=== PATIENT | male | born 1980 | race Caucasian/White ===

== ENCOUNTER 2017-06-10 08:09 | Emergency (ER) | payer MEDICARE, SELFPAY ==
[2017-06-10 07:17] VITALS: BP 152/93; PULSE 130; RESP 20; TEMP 36.6; O2SAT 98; BMI 23.7
--- NOTE | 2017-06-10 07:43 | CT_ITS ---
CT head/brain wo con HISTORY: ITS.REASON: SEIZURE ACTIVITY ORDERING PHYSICIAN: Jonatan Pendleton MD PATIENT AGE: 37 years COMPARISON: None TECHNIQUE: Helical images obtained without contrast. Axial sagittal and coronal reformatted images are reviewed. Brain and bone windows reviewed. FINDINGS: No midline shift, mass effect, intracranial hemorrhage, hydrocephalus, or extra-axial fluid collection is evident. The calvarium has an unremarkable appearance. No mastoid effusion. No sinus air-fluid levels.. IMPRESSION: Negative CT head without contrast. No acute finding.
--- NOTE | 2017-06-10 07:43 | PC.NURSE ---
Phlebotomy at bedside, collecting labs.
[2017-06-10 07:46] VITALS: BP 148/88; PULSE 100; RESP 20; O2SAT 97
[2017-06-10 08:36] LABS: Basophils % 0.4 % (0.1-2.0); Eosinophils # 0.1 K/mm3 (0.0-0.4); Eosinophils % 0.8 % (0.1-12.0); Hematocrit 46.4 % (42.0-52.0); Hemoglobin 15.2 g/dL (14.1-18.0); Lymphocytes # 1.6 K/mm3 (0.7-4.5); Lymphocytes % 18.7 K/mm3 (10-50); Mean Corpuscular HGB Conc 32.7 g/dL (31.8-35.4); Mean Corpuscular Hemoglobin 28.3 pg (27.0-31.2); Mean Corpuscular Volume 86.5 fl (80-94); Mean Platelet Volume 7.8 fl (7.4-10.4); Monocytes # 0.4 K/mm3 (0.1-1.0); Neutrophils # 6.3 K/mm3 (1.8-7.8); Neutrophils % 75.1 % (37.0-80.0); Platelet Count 237 K/mm3 (142-424); Red Blood Count 5.37 M/mm3 (4.60-6.20); Red Cell Distribution Width 12.9 % (11.5-17.5); White Blood Count 8.3 K/mm3 (4.8-10.8)
[2017-06-10 08:46] VITALS: BP 147/98; PULSE 98; RESP 20; TEMP 36.9; O2SAT 98
--- NOTE | 2017-06-10 08:50 | HMH.EDGENADL ---
ED Disposition Clinical Impression: Hypoglycemia, Cocaine abuse, Methamphetamine abuse Disposition: Home, Self-Care Condition on Discharge: Fair Instructions: Toxicology Screen, Hypoglycemia, DI for Cocaine Use Disorder, DI for Drug Abuse and Drug Addiction Additional Instructions: Please follow-up with [facility] regarding your drug problem and drug abuse. Urine drug screen was positive today for cocaine and amphetamine. Please make sure you eat 3 regular meals daily, drink plenty of fluids and monitor your sugars regularly. Please follow-up with your family physician if not better. Referrals: Lyla Mireles [Primary Care Provider] - Time of Disposition: 13:06 - Critical Care Critical Care Time: No Attestation: On 06/10/17, the high probability of a clinically significant, sudden or life threatening deterioration of the following system(s) required my full and direct attention, intervention and personal management. The time I documented below is in addition to time spent performing reported procedures but includes the following listed in this critical care notation. Medical Decision Making - Medical Records Medical records reviewed: Yes: I reviewed the patient's medical records. Vital Signs: 06/10/17 07:17 06/10/17 07:46 06/10/17 08:46 Temperature 97.8 F 98.4 F Temperature Source Oral Oral Pulse Rate Pulse Rate [Right Radial] 130 H 100 H 98 H Respiratory Rate 20 20 20 Blood Pressure Blood Pressure [Right Arm] 152/93 148/88 147/98 Blood Pressure Mean [Right Arm] 112 108 114 Blood Pressure Source Blood Pressure Source [Right Arm] Automatic Cuff Automatic Cuff Automatic Cuff Blood Pressure Position Blood Pressure Position [Right Arm] Supine Supine Sitting 02 Sat by Pulse Oximetry 98 97 98 Oxygen Delivery Method Room Air Room Air Room Air 06/10/17 13:16 Temperature 98.0 F Temperature Source Oral Pulse Rate 88 Pulse Rate [Right Radial] Respiratory Rate 20 Blood Pressure 114/59 Blood Pressure [Right Arm] Blood Pressure Mean [Right Arm] Blood Pressure Source Automatic Cuff Blood Pressure Source [Right Arm] Blood Pressure Position Supine Blood Pressure Position [Right Arm] 02 Sat by Pulse Oximetry Oxygen Delivery Method Room Air - Lab Data Lab results reviewed: Yes: I reviewed the patient's lab results. Lab Results 06/10/17 08:20: WBC 8.3, RBC 5.37, Hgb 15.2, Hct 46.4, MCV 86.5, MCH 28.3, MCHC 32.7, RDW 12.9, Plt Count 237, MPV 7.8, Neut % (Auto) 75.1, Lymph % (Auto) 18.7, [place] % (Auto) 5.0, Eos % (Auto) 0.8, Baso % (Auto) 0.4, Neut # (Auto) 6.3, Lymph # (Auto) 1.6, [place] # (Auto) 0.4, Eos # (Auto) 0.1, Baso # (Auto) 0.0 06/10/17 08:20: Sodium 144, Potassium 3.8, Chloride 106, Carbon Dioxide 25, Anion Gap 16.8 H, BUN 9, Creatinine 1.03, Estimated Creat Clear 112, Estimated GFR 81, Est GFR ( Amer) 98, Glucose 131 H, Calcium 9.1, Total Bilirubin 0.5, AST 50 H, ALT 83 H, Alkaline Phosphatase 123 H, Total Protein 8.4 H, Albumin 3.9, Globulin 4.5 H, Albumin/Globulin Ratio 0.9 L, Plasma/Serum Alcohol 0 06/10/17 10:10: Urine Color Yellow, Urine Appearance Sl cloudy, Urine pH 6.0, Ur Specific Colon >= 1.030, Urine Protein 2+, Urine Glucose (UA) 2+, Urine Ketones Trace, Urine Blood 1+, Urine Nitrate Negative, Urine Bilirubin Negative, Urine Urobilinogen 0.2, Ur Leukocyte Esterase Negative, Urine RBC Occasional, Urine WBC 5-10, Calcium Oxalate Crystal Trace, Urine Bacteria 2+, Urine Mucus 2+ 06/10/17 10:10: Urine Opiates Screen Negative, Ur Barbituates Screen Negative, Ur Phencyclidine Scrn Negative, Ur Amphetamines Screen Positive H, U Methamphetamines Scrn Negative, U Benzodiazepines Scrn Negative, Urine Cocaine Screen Positive H, U Marijuana (THC) Screen Negative 06/10/17 10:30: POC Glucose 266 Result diagrams: 06/10/17 08:20 06/10/17 08:20 Orders (Tests/Meds): ED MEDICATIONS Discontinued Medications Generic Name Dose Route Start Last Admin Trade Na
[2017-06-10 08:51] LABS: Alanine Aminotransferase 83 U/L (12-78); Albumin Level 3.9 gm/dL (3.4-5.0); Albumin/Globulin Ratio 0.9 (1.1-1.8); Alkaline Phosphatase 123 U/L (46-116); Anion Gap 16.8 mEq/L (5-15); Aspartate Amino Transferase 50 U/L (15-37); Bilirubin,Total 0.5 mg/dL (0.2-1.0); Blood Urea Nitrogen 9 mg/dL (7-18); Calcium 9.1 mg/dL (8.5-10.1); Carbon Dioxide 25 mmol/L (21.0-32.0); Chloride 106 mmol/L (98-107); Creatinine Clearance Estimated 112 mL/min (0-300); Creatinine,Serum 1.03 mg/dL (0.70-1.30); Estimated Glomerular Filt Rate 81 ml/min (>60); GFR (African American) 98 ML/MIN (>60); Globulin 4.5 gm/dl (1.3-3.2); Glucose 131 mg/dL (74-106); Potassium 3.8 mmoL/L (3.5-5.1); Sodium 144 mmol/L (136-145); Total Protein,Serum 8.4 gm/dL (6.4-8.2)
--- NOTE | 2017-06-10 08:57 | ED_ITS ---
ED Disposition Clinical Impression: Hypoglycemia, Cocaine abuse, Methamphetamine abuse Disposition: Home, Self-Care Condition on Discharge: Fair Instructions: Toxicology Screen, Hypoglycemia, DI for Cocaine Use Disorder, DI for Drug Abuse and Drug Addiction Additional Instructions: Please follow-up with [facility] regarding your drug problem and drug abuse. Urine drug screen was positive today for cocaine and amphetamine. Please make sure you eat 3 regular meals daily, drink plenty of fluids and monitor your sugars regularly. Please follow-up with your family physician if not better. Referrals: Lyla Mireles [Primary Care Provider] - Time of Disposition: 13:06 - Critical Care Critical Care Time: No Attestation: On 06/10/17, the high probability of a clinically significant, sudden or life threatening deterioration of the following system(s) required my full and direct attention, intervention and personal management. The time I documented below is in addition to time spent performing reported procedures but includes the following listed in this critical care notation. Medical Decision Making - Medical Records Medical records reviewed: Yes: I reviewed the patient's medical records. Vital Signs: 06/10/17 07:17 06/10/17 07:46 06/10/17 08:46 Temperature 97.8 F 98.4 F Temperature Source Oral Oral Pulse Rate Pulse Rate [Right Radial] 130 H 100 H 98 H Respiratory Rate 20 20 20 Blood Pressure Blood Pressure [Right Arm] 152/93 148/88 147/98 Blood Pressure Mean [Right Arm] 112 108 114 Blood Pressure Source Blood Pressure Source [Right Arm] Automatic Cuff Automatic Cuff Automatic Cuff Blood Pressure Position Blood Pressure Position [Right Arm] Supine Supine Sitting 02 Sat by Pulse Oximetry 98 97 98 Oxygen Delivery Method Room Air Room Air Room Air 06/10/17 13:16 Temperature 98.0 F Temperature Source Oral Pulse Rate 88 Pulse Rate [Right Radial] Respiratory Rate 20 Blood Pressure 114/59 Blood Pressure [Right Arm] Blood Pressure Mean [Right Arm] Blood Pressure Source Automatic Cuff Blood Pressure Source [Right Arm] Blood Pressure Position Supine Blood Pressure Position [Right Arm] 02 Sat by Pulse Oximetry Oxygen Delivery Method Room Air - Lab Data Lab results reviewed: Yes: I reviewed the patient's lab results. Lab Results 06/10/17 08:20: WBC 8.3, RBC 5.37, Hgb 15.2, Hct 46.4, MCV 86.5, MCH 28.3, MCHC 32.7, RDW 12.9, Plt Count 237, MPV 7.8, Neut % (Auto) 75.1, Lymph % (Auto) 18.7 , [place] % (Auto) 5.0, Eos % (Auto) 0.8, Baso % (Auto) 0.4, Neut # (Auto) 6.3, Lymph # (Auto) 1.6, [place] # (Auto) 0.4, Eos # (Auto) 0.1, Baso # (Auto) 0.0 06/10/17 08:20: Sodium 144, Potassium 3.8, Chloride 106, Carbon Dioxide 25, Anion Gap 16.8 H, BUN 9, Creatinine 1.03, Estimated Creat Clear 112, Estimated GFR 81, Est GFR ( Amer) 98, Glucose 131 H, Calcium 9.1, Total Bilirubin 0.5, AST 50 H, ALT 83 H, Alkaline Phosphatase 123 H, Total Protein 8.4 H, Albumin 3.9, Globulin 4.5 H, Albumin/Globulin Ratio 0.9 L, Plasma/Serum Alcohol 0 06/10/17 10:10: Urine Color Yellow, Urine Appearance Sl cloudy, Urine pH 6.0, Ur Specific [place] >= 1.030, Urine Protein 2+, Urine Glucose (UA) 2+, Urine Ketones Trace, Urine Blood 1+, Urine Nitrate Negative, Urine Bilirubin Negative , Urine Urobilinogen 0.2, Ur Leukocyte Esterase Negative, Urine
[2017-06-10 09:00] LABS: Ethyl Alcohol 0 mg/dL (0-99)
--- NOTE | 2017-06-10 09:39 | PC.NURSE ---
RN walked into room and overheard patient talking to , stating, I'm not going to do that for you. Patient stating he can not urinate. Patient has fluids hanging wide open and is drinking soda as well.
[2017-06-10 10:14] LABS: Microscopic, Urine URINE MICROSCOPIC (MICROSCOPIC)
[2017-06-10 10:17] LABS: Appearance,Urine SL CLOUDY (Clear); Bilirubin,Urine Negative (Negative); Blood, Urine 1+ (Negative); Color,Urine YELLOW (Yellow); Glucose,Urine (UA) 2+ (Negative); Ketones,Urine TRACE (Negative); Leukocyte Esterase,Urine Negative (Negative); Nitrate,Urine Negative (Negative); Protein,Urine 2+ (Negative); Specific Gravity, Urine >= 1.030 (1.005-1.030); Urobilinogen,Urine 0.2 EU/dl (0.2)
[2017-06-10 10:25] LABS: Amphetamine/Metha Screen,Urine Positive ng/mL (<1000); Barbiturates Screen,Urine Negative ng/mL (<200); Benzodiazepines Screen,Urine Negative ng/mL (200); Cannabinoid Screen,Urine Negative ng/mL (<50); Cocaine Screen,Urine Positive ng/g (<300); Methadone Screen,Urine Negative ng/mL (<300); Opiate Screen,Urine Negative ng/mL (<300); Phencyclidine Screen,Urine Negative ng/mL (<25)
[2017-06-10 10:38] LABS: POC Glucose,Bedside 266 mg/dL
[2017-06-10 10:44] LABS: Bacteria,Urine 2+ /lpf; Mucus,Urine 2+ /lpf; RBC,Urine Occasional #/hpf (0-3)
[2017-06-10 10:45] LABS: Calcium Oxalate Crystals,Urine Trace /lpf
--- NOTE | 2017-06-10 11:31 | PC.NURSE ---
Blood glucose 266.
[2017-06-10 13:16] VITALS: BP 114/59; PULSE 88; RESP 20; TEMP 36.7; O2SAT 99
[2017-07-09 09:53] LABS: POC Glucose,Bedside 106 mg/dL (70-110)
== END 2017-06-10 13:17 | disposition home or self-care (01) ==
PROVIDERS: Emergency Medicine; Emergency Provider Emergency Medicine; Family Provider Family Medicine; PCP Family Medicine
DX: E10.649 Type 1 diabetes mellitus with hypoglycemia without coma (principal); G40.89 Other seizures; F14.10 Cocaine abuse, uncomplicated; F15.90 Other stimulant use, unspecified, uncomplicated
CPT/HCPCS: 36415; 70450; 80053; 80305; 81001; 82962; 85025; 87086; 96365; 99283

== ENCOUNTER 2018-09-21 17:47 | Inpatient (IN) ==
[2018-09-21 18:41] LABS: Basophils % 0.4 % (0.1-2.0); Eosinophils # 0.1 K/mm3 (0.0-0.4); Eosinophils % 1.3 % (0.1-12.0); Hematocrit 41.9 % (42.0-52.0); Hemoglobin 13.3 g/dL (14.1-18.0); Lymphocytes # 2.5 K/mm3 (0.7-4.5); Mean Corpuscular HGB Conc 31.8 g/dL (31.8-35.4); Mean Corpuscular Hemoglobin 29.5 pg (27.0-31.2); Mean Platelet Volume 7.5 fl (7.4-10.4); Monocytes # 0.4 K/mm3 (0.1-1.0); Monocytes % 3.8 % (1.7-9.3); Neutrophils # 6.3 K/mm3 (1.8-7.8); Neutrophils % 67.5 % (37.0-80.0); Platelet Count 270 K/mm3 (142-424); Red Blood Count 4.51 M/mm3 (4.60-6.20); White Blood Count 9.3 K/mm3 (4.8-10.8)
[2018-09-21 19:01] LABS: Albumin Level 2.6 gm/dL (3.4-5.0); Albumin/Globulin Ratio 0.5 (1.1-1.8); Anion Gap 10.1 mEq/L (5-15); Bilirubin,Total 0.4 mg/dL (0.2-1.0); Calcium 8.1 mg/dL (8.5-10.1); Globulin 5.2 gm/dl (1.3-3.2); Potassium 4.1 mmoL/L (3.5-5.1); Total Protein,Serum 7.8 gm/dL (6.4-8.2)
[2018-09-21 19:17] LABS: VBG Base Excess 1.5 mmol/L (-2.4-2.3); VBG HCO3 27.5 mmol/L (23-30); VBG Oxygen Saturation 87.6 % (50-70); VBG PCO2 53.7 mmol/L (35-51); VBG PH 7.33 mmol/L (7.31-7.41); VBG PO2 53.4 mmol/L (28-40); VBG Total CO2 29.1 mmol/L (23-27)
--- NOTE | 2018-09-21 19:39 | Emergency Department Note ---
ED Disposition Clinical Impression: Cellulitis, IDDM (insulin dependent diabetes mellitus), Non compliance with medical treatment, S/P AKA (above knee amputation) Disposition: Admitted as Observation Condition on Discharge: Fair Instructions: Cellulitis Referrals: Akila Slade [Primary Care Provider] - Time of Disposition: 20:09 - Critical Care Critical Care Time: No Attestation: On 09/21/18, the high probability of a clinically significant, sudden or life threatening deterioration of the following system(s) required my full and direct attention, intervention and personal management. The time I documented below is in addition to time spent performing reported procedures but includes the following listed in this critical care notation. Medical Decision Making - Medical Records Medical records reviewed: Yes: I reviewed the patient's medical records. - Dyllan Inquiry Pt receiving controlled substance: No Dyllan was queried for this patient: No Vital Signs: 09/21/18 17:49 09/21/18 17:58 09/21/18 19:19 Temperature 98 F 98 F Temperature Source Oral Oral Pulse Rate [Left Radial] 87 87 72 Respiratory Rate 16 14 Blood Pressure [Right Arm] 141/70 H 140/70 145/72 H Blood Pressure Mean [Right Arm] 93 93 96 Blood Pressure Source [Right Arm] Automatic Cuff Automatic Cuff Blood Pressure Position [Right Arm] Sitting Sitting 02 Sat by Pulse Oximetry 98 98 98 Oxygen Delivery Method Room Air Room Air - Lab Data Lab results reviewed: Yes: I reviewed the patient's lab results. Lab Results 09/21/18 18:20: WBC 9.3, RBC 4.51 L, Hgb 13.3 L, Hct 41.9 L, MCV 93.0, MCH 29.5, MCHC 31.8, RDW 13.0, Plt Count 270, MPV 7.5, Neut % (Auto) 67.5, Lymph % (Auto) 27.0, [place] % (Auto) 3.8, Eos % (Auto) 1.3, Baso % (Auto) 0.4, Neut # (Auto) 6.3, Lymph # (Auto) 2.5, [place] # (Auto) 0.4, Eos # (Auto) 0.1, Baso # (Auto) 0.0 09/21/18 18:20: Sodium 127 L, Potassium 4.1, Chloride 92 L, Carbon Dioxide 29, Anion Gap 10.1, BUN 14, Creatinine 0.92, Estimated Creat Clear 124, Estimated GFR 92, Est GFR ( Amer) 111, Glucose 646 H*, Calcium 8.1 L, Total Bilirubin 0.4, AST 98 H, ALT 168 H, Alkaline Phosphatase 133 H, Total Protein 7.8, Albumin 2.6 L, Globulin 5.2 H, Albumin/Globulin Ratio 0.5 L 09/21/18 18:20: Lactate 1.9 09/21/18 18:20: Acetone Level None detected 09/21/18 19:13: VBG pH 7.33, VBG pCO2 53.7 H, VBG pO2 53.4 H, VBG HCO3 27.5, VBG Total CO2 29.1 H, VBG O2 Saturation 87.6 H, VBG Base Excess 1.5 Result diagrams: 09/21/18 18:20 09/21/18 18:20 Orders (Tests/Meds): ED MEDICATIONS Generic Name Dose Route Start Last Admin Trade Name Freq PRN Reason Stop Dose Admin Sodium Chloride 1,000 mls @ 999 mls/hr 09/21/18 19:15 09/21/18 19:22 Sod Chlor 0.9% 1000ml Bag IV 09/21/18 21:15 999 mls/hr .Q1H1M KEVIN Administration Piperacillin Sod/Tazobactam 50 mls @ 100 mls/hr 09/21/18 20:15 Sod 3.375 gm/ Sodium Chloride IV 10/05/18 20:14 Q6H KEVIN Protocol Vancomycin HCl 1,500 mg/ 250 mls @ 125 mls/hr 09/21/18 20:04 Sodium Chloride IV 09/21/18 22:03 ONCE ONE Miscellaneous 1 each 09/21/18 20:15 09/21/18 20:05 Vancomycin Consult Request * 10/21/18 20:14 1 each CONSULT PHARMACY KEVIN Administration Discontinued Medications Generic Name Dose Route Start Last Admin Trade Name Freq PRN Reason Stop Dose Admin Insulin Human Lispro 12 unit 09/21/18 19:43 09/21/18 20:06 Humalog 100 Units/Ml 3ml Vial (Ssi) SQ 09/21/18 19:44 12 unit ONCE ONE Administration Ketorolac Tromethamine 30 mg 09/21/18 19:52 09/21/18 20:05 Toradol 30mg/Ml Vial IV 09/21/18 19:53 30 mg ONCE ONE Administration Oxycodone/Acetaminophen 1 each 09/21/18 19:52 09/21/18 20:05 Percocet 7.5/325mg Tablet PO 09/21/18 19:53 1 each ONCE ONE Administration ORDERS Category Date Time Status CT hand LT w con Stat Cat Scan 09/21/18 20:01 Ordered Blood Culture Stat Micro 09/21/18 18:20 Received VBG [Venous Blood Gas] Stat RT 09/21/18 19:37 Ordered - Physician Consults Physician Consulted: irvin Reason -: Pt condition Comment/Response: will see Brittany Additional Consult: robe Time: 20:08 Reason -: Admission, Pt condition, Orthopedic Eval/Care Comment/Response: iv antibiotics General Adult HPI - General Chief complaint: PAIN Stated complaint: AO [address] to Wrist, Hand swollen Time Seen by Provider: 09/21/18 18:00 Mode of Arrival: Ambulatory Source of Information: Patient Limitations: No Limitations Description of Symptoms (Recalled from ER Triage Doc. by RN): see note - Related Data Home Medications Medication Instructions Recorded Confirmed Insulin Regular, Human [Novolin R] 28 unit SQ BID 11/10/17 09/21/18 Buprenorphine HCl/Naloxone HCl 1 each SL BID 02/07/18 09/21/18 [Suboxone 8 mg-2 mg Sl Film] Allergies Allergy/AdvReac Type Severity Reaction Status Date / Time No Known Allergies Allergy Verified 01/05/18 05:53 [facility] History - Hepatitis A Screen Drug use history?: Yes High risk sexual behaviors?: No History of sexually transmitted infection?: No Currently employed?: No Childcare worker?: No Do you have indoor plumbing?: Yes Do you have electricity?: Yes Attestation statement:: This patient has been screened for Hepatitis A risk factors. I have reviewed the patient's past medical history: Yes Medical History: Reports:: Diabetes Mellitus Type 1 Denies:: Cancer, Diabetes Mellitus Type 2, MRSA Amputation: Yes - Social History Smoking Status: Current every day smoker Tobacco Type: cigarettes # Packs/Day (cigarettes): 0 Alcohol Intake: never Substance Use Type: IV drugs, methamphetamine Last Used Substance: days (ago) Occupational Status: other - Psychiatric History Expresses thoughts of harming self/others: None Suicide Plan Description: No Plan ROS Obtained: Yes All systems reviewed & no additional complaints - Constitutional Constitutional: Denies fever(s) - ENT Ears, Nose, Mouth, and Throat: Reports system reviewed and no additional complaints, except as docu - Cardiovascular Cardiovascular: Denies chest pain, Denies chest pain at rest, Denies diaphoresis, Denies dyspnea - Respiratory Respiratory: Yes system reviewed and no additional complaints, except as docu, No chest congestion, No cough - Genitourinary Male Genitourinary: Reports system reviewed and no additional complaints, except as docu, Denies difficulty urinating - Musculoskeletal Musculoskeletal: Reports joint stiffness, Reports muscle weakness, Reports muscle aches - Integumentary/Breasts Skin/Breast: Reports skin swelling, Reports wounds - Neurologic Neurologic: Denies dizziness - Hematologic/Lymphatic Henatologic/Lymphatic: Denies easy bleeding, Denies easy bruising Physical Exam - General General appearance: alert, in no apparent distress - Head Head exam: atraumatic, normocephalic, normal inspection - Eye Eye exam: Present: normal appearance, PERRL, EOMI - ENT ENT exam: Present: normal exam, normal oropharynx, mucous membranes moist, TM's normal bilaterally, normal external ear exam - Neck Neck exam: Present: normal inspection, full ROM, trachea midline. Absent: meningismus, lymphadenopathy - Respiratory Respiratory exam: Present: normal lung sounds bilaterally. Absent: respiratory distress - Cardiovascular Cardiovascular exam: Present: regular rate, normal rhythm. Absent: JVD - Extremities Exam Extremities exam: Present: tenderness, joint swelling. Absent: normal inspection, full ROM - Neurological Exam Neurological exam: Present: alert, oriented X3, CN II-XII intact - Psychiatric Psychiatric exam: Present: normal affect, normal mood - Skin Skin exam: Present: warm, dry, erythema. Absent: intact, normal color
--- NOTE | 2018-09-21 22:14 | Consult Report ---
*Admission Date: 09/21/18 *Chief complaint: L hand pain/swelling *History of present illness: 38yo M with chief complaint of pain, swelling and redness in the left hand x2 days. He sustained a cut over the volar aspect of the L wrist from a piece of sheet metal at his home. Since then he has had pain and swelling from that site, spreading distally in the hand. No erythema over the wrist, but there is extensi ve erythema over the dorsum of the hand, white pustules scattered across the same region, and extreme pain with any motion of the hand. Denies drainage from the hand, no fevers at home, but his glucose was 646 on presentation to the ER. He was given 12 units humalog on arrival and it has decreased to 293. 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 He has a history of IVDU but has not injected anything in over a month; at that time he injected into the neck. He reports pain over the middle finger MCP in the past, but doesn't recall any h/o fractures. Denies punching anyone/thing recently. Denies any illegal substances in his system at the moment. Review of Systems - Review of Systems Review of systems:: pertinent systems reviewed and negative unless documented below - Constitutional Denies chills, Denies excessive sweating, Denies fever(s), Denies headache(s), Denies weakness - Eyes Denies blurry vision - *Cardiovascular Denies chest pain, Denies shortness of breath - *Respiratory Denies cough, Denies shortness of breath - *Gastrointestinal Denies abdominal pain - *Genitourinary Denies difficulty urinating, Denies painful urination - *Musculoskeletal Reports joint pain, Reports joint swelling Comments: L hand - *Neurologic Denies dizziness, Denies numbness, Denies dizziness, Denies weakness [facility] History I have reviewed the patient's past medical history: Yes Medical History: Reports:: Diabetes Mellitus Type 1 Denies:: Cancer, Diabetes Mellitus Type 2, MRSA *Have you ever received a pneumonia vaccine?: No *Have you received a flu vaccine this season?: No Amputation: Yes Comment: I&D of multiple septic joints at ; h/o fungal infection in R knee - *Social History Smoking Status: Current every day smoker Tobacco Type: cigarettes # Packs/Day (cigarettes): 0 Alcohol Intake: never Substance Use Type: IV drugs, methamphetamine Last Used Substance: days (ago) *Occupational Status:: other *Travel in the last 8 weeks: None - Psychiatric History Expresses thoughts of harming self/others: None Suicide Plan Description: No Plan Family Hx:: No significant family history Meds Home Medications Medication Instructions Recorded Confirmed Type Insulin Regular, Human [Novolin R] 28 unit SQ BID 11/10/17 09/21/18 History Buprenorphine HCl/Naloxone HCl 1 each SL BID 02/07/18 09/21/18 History [Suboxone 8 mg-2 mg Sl Film] Allergies Allergy/AdvReac Type Severity Reaction Status Date / Time No Known Allergies Allergy Verified 01/05/18 05:53 Exam Vital signs and Labs for Last 24 Hours: Temp Pulse Resp BP Pulse Ox 98 F 87 15 146/71 H 98 09/21/18 17:58 09/21/18 21:30 09/21/18 21:30 09/21/18 21:30 09/21/18 21:30 Laboratory Results - last 24 hr 09/21/18 18:20: WBC 9.3, RBC 4.51 L, Hgb 13.3 L, Hct 41.9 L, MCV 93.0, MCH 29.5, MCHC 31.8, RDW 13.0, Plt Count 270, MPV 7.5, Neut % (Auto) 67.5, Lymph % (Auto) 27.0, Gaston % (Auto) 3.8, Eos % (Auto) 1.3, Baso % (Auto) 0.4, Neut # (Auto) 6.3, Lymph # (Auto) 2.5, Gaston # (Auto) 0.4, Eos # (Auto) 0.1, Baso # (Auto) 0.0 09/21/18 18:20: Sodium 127 L, Potassium 4.1, Chloride 92 L, Carbon Dioxide 29, Anion Gap 10.1, BUN 14, Creatinine 0.92, Estimated Creat Clear 124, Estimated GFR 92, Est GFR ( Amer) 111, Glucose 646 H*, Calcium 8.1 L, Total Bilirubin 0.4, AST 98 H, ALT 168 H, Alkaline Phosphatase 133 H, Total Protein 7.8, Albumin 2.6 L, Globulin 5.2 H, Albumin/Globulin Ratio 0.5 L 09/21/18 18:20: Lactate 1.9 09/21/18 18:20: Acetone Level None detected 09/21/18 19:13: VBG pH 7.33, VBG pCO2 53.7 H, VBG pO2 53.4 H, VBG HCO3 27.5, VBG Total CO2 29.1 H, VBG O2 Saturation 87.6 H, VBG Base Excess 1.5 09/21/18 21:53: POC Glucose 293 H I & O for Last 24 hours: Intake & Output 09/19/18 09/20/18 09/21/18 09/22/18 11:59 11:59 11:59 11:59 Weight 180 lb - Constitutional no acute distress, average body habitus, cooperative - *Routine HEENT Exam Head: Present: normocephalic Eye: Present: EOMI ENT: Present: mucous membranes moist - *Routine Neck Exam Present: supple. Absent: tenderness - *Routine Respiratory Exam Present: CTA bilaterally. Absent: respiratory distress, wheezes - *Routine Cardiovascular Exam Present: RRR - *Routine Abdominal Exam Present: soft. Absent: tenderness, distended - *Routine Extremities Exam Comments: L hand diffusely swollen throughout palm and dorsum of hand erythema extends across the entire dorsum of the hand, does not extend proximal to wrist, no palmar erythema tattoo across entire dorsum of hand (~1 month old per patient) scattered lesions across dorsum of hand, each around 2mm and raised with white center/red base, not fluctuant, nothing expressed severe pain with passive extension of all digits, unable to make a fist; pain with flexion of any digit hand soft, extremely tender, cannot palpate discrete abscess but appearance c/w deep space infection laceration over volar wrist, around 3cm proximal to wrist crease, 3-4cm long and appears superficial, though soft tissue very tender diminished motion in left wrist, pain with passive flexion/extension SILT in m/r/u distributions L hand AIN/PIN/ulnar nerves motor intact to L hand palpable radial pulse at the L wrist - *Routine Skin Exam Present: intact, erythema, warm, lesions - *Routine Neurological Exam Present: alert, oriented X3, moving all extremities, normal tone. Absent: sensory deficit, motor deficit, altered mental status - Routine Psychiatric Exam Present: normal affect Results - Labs Result Diagrams: 09/21/18 18:20 09/21/18 18:20 Labs: Abnormal lab results 09/21/18 09/21/18 09/21/18 Range/Units 18:20 18:20 19:13 RBC 4.51 L (4.60-6.20) M/mm3 Hgb 13.3 L (14.1-18.0) g/dL Hct 41.9 L (42.0-52.0) % VBG pCO2 53.7 H (35-51) mmol/L VBG pO2 53.4 H (28-40) mmol/L VBG Total CO2 29.1 H (23-27) mmol/L VBG O2 Saturation 87.6 H (50-70) % Sodium 127 L (136-145) mmol/L Chloride 92 L (98-107) mmol/L Glucose 646 H* (74-106) mg/dL POC Glucose (70-110) Calcium 8.1 L (8.5-10.1) mg/dL AST 98 H (15-37) U/L ALT 168 H (12-78) U/L Alkaline Phosphatase 133 H (46-116) U/L Albumin 2.6 L (3.4-5.0) gm/dL Globulin 5.2 H (1.3-3.2) gm/dl Albumin/Globulin Ratio 0.5 L (1.1-1.8) 09/21/18 Range/Units 21:53 RBC (4.60-6.20) M/mm3 Hgb (14.1-18.0) g/dL Hct (42.0-52.0) % VBG pCO2 (35-51) mmol/L VBG pO2 (28-40) mmol/L VBG Total CO2 (23-27) mmol/L VBG O2 Saturation (50-70) % Sodium (136-145) mmol/L Chloride (98-107) mmol/L Glucose (74-106) mg/dL POC Glucose 293 H (70-110) Calcium (8.5-10.1) mg/dL AST (15-37) U/L ALT (12-78) U/L Alkaline Phosphatase (46-116) U/L Albumin (3.4-5.0) gm/dL Globulin (1.3-3.2) gm/dl Albumin/Globulin Ratio (1.1-1.8) H & H 09/21/18 Range/Units 18:20 Hgb 13.3 L (14.1-18.0) g/dL Hct 41.9 L (42.0-52.0) % All other labs normal. - Diagnostic results Wrist/Hand x-ray: image reviewed (small fracture from metacarpal head of middle finger, margins rounded, appears chronic ) Wrist/Hand CT: image reviewed Assessment and Plan (1) Abscess of hand Current visit: Yes Status: Acute Category: Medical Code(s): L02.519 - Cuta neous abscess of unspecified hand (2) Cellulitis Current visit: Yes Status: Acute Category: Medical Code(s): L03.90 - Cellulitis, unspecified (3) IDDM (insulin dependent diabetes mellitus) Current visit: Yes Status: Acute Category: Medical Code(s): E11.9 - Type 2 diabetes mellitus without complications; Z79.4 - [employer] (current) use of insulin (4) Hyperglycemia Current visit: No Status: Acute Category: Medical Code(s): R73.9 - Hyperglycemia, unspecified - Assessment and plan all Dx Assessment and Plan for all problems:: 38yo M with L hand cellulitis, suspect deep space infection clinically -- WBC 9.3, blood cultures/CRP/ESR pending -- no acetone, lactate 1.9; glucose 646 --> 293 -- Na 127 -- CT hand = awaiting read from telerads -- clinical suspicion for deep space infection, will take to OR for I&D tonight and start vanc/zosyn after cultures taken -- consent obtained from patient
--- NOTE | 2018-09-22 00:10 | Progress Note ---
[facility] Anesthesia Checklist - Patient Identification Patient Identification: Arm Band - Structural Data Admitted From: Emergency Dept Planned Operative Procedure/s: I&D right hand Consent for Planned Operative Procedure(s) Verified: Yes Verified Documents: Surgical Consent, History and Physical - NPO Status Verified Time NPO: 00:00 - Additional verifications Anesthesia Reactions: No - Airway Assessment C-Spine Mobility Assessed: Yes (mp2) TMJ Mobility Assessed: Yes Dentition: Poor Dentition - Neurological Assessment Level of Consciousness: Awake, Alert - Anesthesia Plan Anesthesia Risk discussed: Yes Anesthesia Plan: Verified ASA Class: III (e) Anesthesia Type: General [facility] History I have reviewed the patient's past medical history: Yes Medical History: Reports:: Diabetes Mellitus Type 1, Hepatitis (C) Denies:: Cancer, Diabetes Mellitus Type 2, MRSA, Seizures *Have you ever received a pneumonia vaccine?: No *Have you received a flu vaccine this season?: No Other Medical History: Denies: Blood Transfusion Reaction Other Surgeries: Yes: Other (left AKA, bilateral shoulder sx, right knee sx) Amputation: Yes - *Social History Smoking Status: Current every day smoker Tobacco Type: cigarettes # Packs/Day (cigarettes): 0 Alcohol Intake: never Substance Use Type: IV drugs, methamphetamine Last Used Substance: days (ago) *Occupational Status:: other *Travel in the last 8 weeks: None - Psychiatric History Expresses thoughts of harming self/others: None Suicide Plan Description: No Plan Family Hx:: No significant family history
--- NOTE | 2018-09-22 00:11 | Progress Note ---
[facility] Anesthesia Record Part I Intake, IV Amount: 1,000 Estimated blood loss (mL): 10 Urine output (mL): 0 Blood Pressure: 124/73 SaO2: 96 Pulse Rate: 83 Respiratory Rate: 16 Temperature: 98 F Patient is:: Drowsy, Stable Stable to PACU at:: 23:50
--- NOTE | 2018-09-22 00:11 | Progress Note ---
[facility] Anesthesia Record Part II Discharge Time: 00:20 Destination: 2nd floor PACU nurse assessment reviewed?: Yes Patient Condition:: Good Anesthesia Complications:: None Swallowing reflex intact?: Yes Cyanosis?: No
--- NOTE | 2018-09-22 00:21 | Operative Note ---
Date of procedure: 09/22/18 Pre-op Diagnosis:: L hand cellulitis + possible deep space infection Post-op Diagnosis:: L hand cellulitis + small superficial abscesses x4 Procedure performed:: I&D L hand Surgeon:: Marielena Florentino MD Iron Setter(s):: Billie Adams CST PAEDIATRIC SURGEON:: Jose Tillman Anesthesia: GETA Estimated blood loss (mL): 5 Clinical Note:: 38yo M with chief complaint of pain, swelling and redness in the left hand x2 days. He sustained a cut over the volar aspect of the L wrist from a piece of sheet metal at his home. Since then he has had pain and swelling from that site, spreading distally in the hand. No erythema over the wrist, but there is extensive erythema over the dorsum of the hand, white pustules scattered across the same region, and extreme pain with any motion of the hand. Denies drainage from the hand, no fevers at home, but his glucose was 646 on presentation to the ER. He was given 12 units humalog on arrival and it has decreased to 293. 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 He has a history of IVDU but has not injected anything in over a month; at that time he injected into the neck. He reports pain over the middle finger MCP in the past, but doesn't recall any h/o fractures. Denies punching anyone/thing recently. Denies any illegal substances in his system at the moment. Operative findings:: Pus from small abscess over dorsal/radial hand, small pustules scattered over dorsum of hand; no deep space infection. Operative note:: The patient was identified in pre-operative holding and the L hand marked by myself. Consent was verified with the patient. He was taken to the OR and placed supine on the operative table with the left upper extremity on a hand table. Non-sterile tourniquet was applied to the upper left arm. The left upper extremity was prepped and draped in the usual sterile fashion. Timeout was performed, identifying the correct patient, correct procedure and correct site. The procedure was begun by examining the left arm. A fresh-appearing track jude was seen in the L AC fossa; it was confirmed with the ER that no IVs were attempted in the left upper extremity. The laceration over the left wrist was superficial and nearly healed, no fluctuance, no drainage, only mild erythema. The left arm was elevated for 3 minutes and the tourniquet inflated to 250 mmHg; no esmarch exsanguination was performed. A longitudinal incision was made over the dorsum of the left hand between the index/middle metacarpals; skin only was incised and a hemostat used to bluntly spread the soft tissue. No pus was seen, but abundant serosanguinous, cloudy fluid. A separate, smaller incision was made between the ring/small metacarpals; a large amount of serous fluid was expressed from this wound but no pus. The lesions over the hand that were raised with a white base were separately incised with stab incisions, equaling 4 total. Small amounts of pus were expressed from each of these; this was sent for culture. After cultures were taken, IV antibiotics were started; vanc/zosyn. A separate, small incision was made over the thenar eminence; curvilinear, along thenar crease. No pus seen in this location, tissue appeared healthy. The wounds were then all irrigated copiously with 3L sterile saline infused with bacitracin, delivered via cystoscopy tubing hung to gravity. Tourniquet was dropped at 36 minutes, no bleeding. After the incisions were irrigated, the 2 dorsal longitudinal incisions and the 1 thenar incision were loosely reapproximated wi th 4-0 nylon. The small stab incisions that had the pus were left open to drain. The hand was then dressed with xeroform, 4x4s, webril and splinted with 3" Orthoglass. The patient was then extubated and transferred to PACU in good condition, with warm fingers w/brisk cap refill. Tourniquet time (min): 36 Condition: stable Disposition: PACU Specimens:: multiple wound cultures: aerobic, anaerobic, fungal, AFB Complications:: none
[2018-09-22 07:19] LABS: Basophils % 0.4 % (0.1-2.0); Eosinophils # 0.2 K/mm3 (0.0-0.4); Eosinophils % 2.1 % (0.1-12.0); Hematocrit 37.1 % (42.0-52.0); Hemoglobin 12.3 g/dL (14.1-18.0); Lymphocytes % 33.8 % (10-50); Mean Corpuscular HGB Conc 33.3 g/dL (31.8-35.4); Mean Corpuscular Hemoglobin 29.5 pg (27.0-31.2); Mean Corpuscular Volume 88.6 fl (80-94); Mean Platelet Volume 7.3 fl (7.4-10.4); Monocytes # 0.5 K/mm3 (0.1-1.0); Monocytes % 5.1 % (1.7-9.3); Neutrophils # 5.2 K/mm3 (1.8-7.8); Neutrophils % 58.6 % (37.0-80.0); Platelet Count 264 K/mm3 (142-424); Red Blood Count 4.18 M/mm3 (4.60-6.20); Red Cell Distribution Width 13.4 % (11.5-17.5); White Blood Count 8.9 K/mm3 (4.8-10.8)
[2018-09-22 07:28] LABS: Anion Gap 9.6 mEq/L (5-15); Calcium 7.6 mg/dL (8.5-10.1); Potassium 3.6 mmoL/L (3.5-5.1)
--- NOTE | 2018-09-22 07:35 | Pharmacy Consult Notes ---
[facility] Pharmacy VTE Monitoring - Patient Demographics Admission date: 09/21/18 Report Date: 09/22/18 Time: 07:34 Allergies/Adverse Reactions: Patient Allergies No Known Allergies Allergy (Verified 01/05/18 05:53) Height: 1.83 m Weight: 76.43 kg Patient Problems: Current Active Problems (Updated 09/21/18 @ 22:24 by Marielena Florentino MD) IDDM (insulin dependent diabetes mellitus) (Acute) Non compliance with medical treatment (Acute) S/P AKA (above knee amputation) (Acute) Cellulitis (Acute) Abscess of hand (Acute) - VTE Risk Labs: VTE Related Lab Results Hgb 12.3 g/dL (14.1-18.0) L 09/22/18 06:23 Hct 37.1 % (42.0-52.0) L 09/22/18 06:23 Plt Count 264 K/mm3 (142-424) 09/22/18 06:23 BUN 11 mg/dL (7-18) 09/22/18 06:23 Creatinine 0.60 mg/dL (0.70-1.30) L D 09/22/18 06:23 Estimated Creat Clear 179 mL/min (50-200) 09/22/18 06:23 Was VTE Risk Assessment Performed: Yes VTE Score: 2 VTE Risk Level: Very Low Risk Clinical Trial Participant: No - Prophylaxis VTE Prophylaxis Ordered?: Yes Types of VTE Prophylaxis: IPCS Knee High (POST OP) Location of Applied Device: Right Leg
--- NOTE | 2018-09-22 08:56 | Progress Note ---
Subjective Date: 09/22/18 Time: 08:00 Principal diagnosis: L hand cellulitis; abscesses Interval history: The patient is doing well this morning, keeping LUE elevated on 2 pillows. Complains of pain in the hand, but tolerable. No numbness or tingling in the fingers. PN: Obj Ex Vital signs: Temp Pulse Resp BP Pulse Ox 97.8 F 70 17 129/77 97 09/22/18 08:00 09/22/18 08:00 09/22/18 08:00 09/22/18 08:00 09/22/18 08:00 - Routine Extremities Exam Comments: L hand wrapped/splinted, exposed fingers pink and warm with BCR wiggles fingers; SILT in m/r/u distributions L hand AIN/PIN/ulnar nerves motor intact to L hand palpable radial pulse at the L wrist no pain or erythema in arm proximal to splint Progress Note: A&P (1) Abscess of hand Status: Acute Current Visit: Yes (2) Cellulitis Status: Acute Current Visit: Yes (3) IDDM (insulin dependent diabetes mellitus) Status: Acute Current Visit: Yes (4) Hyperglycemia Status: Acute Current Visit: No Assessment and Plan for All Diagnoses:: 38yo M POD 1 s/p I&D L hand; dorsal cellulitis, scattered small superficial abscesses (2mm each) -- wound cultures taken in OR, results pending -- keep splint intact, elevate LUE aggressively -- continue IV vanc/zosyn -- will remove splint tomorrow to check wounds
--- NOTE | 2018-09-22 09:44 | History & Physical Report ---
*Admission Date: 09/21/18 <Nasima Li - 09/22/18 09:44> *Chief complaint: Left hand pain. <Nasima Li - 09/22/18 09:44> *History of present illness: Mr. Pat is a 38yo M with a history of type 1 diabetes mellitus, IV drug user, septic arthritis, and [id number] amputation due to getting creatinine who presented to [facility] emergency room with chief complaint of pain, swelling and redness in the left hand x2 days. He reports that he sustained a cut over the volar aspect of the L wrist from a piece of sheet metal at his home. Since then he has had pain and swelling from that site, spreading distally in the hand. He describes no erythema over the wrist, but extensive erythema over the dorsum of the hand with white pustules scattered across the same region, and extreme pain with any motion of the hand. He denies drainage from the hand and no fevers at home. His glucose was 646 on presentation to the ER. He was given 12 units humalog on arrival with decrease of blood sugar to 293. 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 He has a history of IVDU but has not injected anything in over a month; at that time he injected into the neck. He reports pain over the middle finger MCP in the past, but doesn't recall any h/o fractures. Denies punching anyone/thing recently. Denies any illegal substances in his system at the moment. He does admit to taking p.o. pain medicine a week ago for back and hip pain. This a.m. patient is postop day #1. He had an I&D of the left hand per Dr. Florentino last evening. The left hand has been elevated on 2 pillows with ice application. He has received p.o. and IV pain medicine. He did sleep some last night. He is hungry for breakfast this a.m. <Nasima Li - 09/22/18 09:51> [facility] History Medical History: Reports:: Diabetes Mellitus Type 1, Hepatitis (C) Denies:: Cancer, Diabetes Mellitus Type 2, MRSA, Seizures <JenNasima 09/22/18 09:44> *Have you ever received a pneumonia vaccine?: No <JenNasima - 09/22/18 09:44> *Have you received a flu vaccine this season?: No <JenNasima Terrell 09/22/18 09:44> Other Medical History: Denies: Blood Transfusion Reaction <JenNasima - 09/22/18 09:44> Other Surgeries: Yes: Other <Nasima Li 09/22/18 09:51> Amputation: Yes (Left leg) <JenNasima - 09/22/18 09:44> Comment: Has had bilateral shoulder surgeries for septic arthritis <Elvia lorenzoNasima 09/22/18 09:59> - *Social History Educational Level: Completed High School <JenNasima - 09/22/18 09:44> Smoking Status: Current every day smoker <JenNasima - 09/22/18 09:44> Tobacco Type: cigarettes <JenNasima 09/22/18 09:44> # Packs/Day (cigarettes): 1 <JenNasima - 09/22/18 09:44> Alcohol Intake: current <JenNasima 09/22/18 09:44> Alcohol Intake Frequency:: holidays/special occasions only <JenNasima 09/22/18 09:44> Substance Use Type: methamphetamine <JenNasima 09/22/18 09:44> Last Used Substance: days (ago) <JenNasima - 09/22/18 09:44> *Occupational Status:: other <Nasima Li 09/22/18 09:44> *Travel in the last 8 weeks: None <JenNasima - 09/22/18 09:44> - Psychiatric History Expresses thoughts of harming self/others: None <Nasima Li 09/22/18 09:44> Suicide Plan Description: No Plan <Nasima Li 09/22/18 09:44> Family Hx:: No significant family history, no Coronary Artery Disease, no Diabetes <Nasima Li 09/22/18 09:59> Review of Systems - Constitutional Denies fever(s), Denies headache(s) <JenNasima 09/22/18 09:59> - ENT Denies ear pain, Denies sore throat <JenNasmia 09/22/18 09:59> - *Cardiovascular Denies chest pain, Denies shortness of breath <LiNasima 09/22/18 09:59> - *Respiratory Denies chest congestion, Denies cough, Denies shortness of breath <JenNasima 09/22/18 09:59> - *Gastrointestinal Denies abdominal pain, Denies nausea, Denies vomiting <LiNasima 09/22/18 09:59> - *Genitourinary Denies difficulty urinating <JenNasima 09/22/18 09:59> - *Musculoskeletal Reports back pain <Li,Nasima 09/22/18 09:59> - *Neurologic Denies dizziness, Denies headache(s), Denies numbness, Denies dizziness, Denies weakness <JenNasima 09/22/18 09:44> Meds Home Medications Medication Instructions Recorded Confirmed Type Insulin Regular, Human [Novolin R] 28 unit SQ BID 11/10/17 09/21/18 History Buprenorphine HCl/Naloxone HCl 1 each SL BID 02/07/18 09/21/18 History [Suboxone 8 mg-2 mg Sl Film] <PhebaKeon leblanc 09/22/18 11:33> Allergies Allergy/AdvReac Type Severity Reaction Status Date / Time No Known Allergies Allergy Verified 01/05/18 05:53 <Keon Clark 09/22/18 11:33> Exam Vital signs and Labs for Last 24 Hours: Temp Pulse Resp BP Pulse Ox 97.8 F 70 17 129/77 97 09/22/18 08:00 09/22/18 08:00 09/22/18 08:00 09/22/18 08:00 09/22/18 08:00 Laboratory Results - last 24 hr 09/21/18 18:20: WBC 9.3, RBC 4.51 L, Hgb 13.3 L, Hct 41.9 L, MCV 93.0, MCH 29.5, MCHC 31.8, RDW 13.0, Plt Count 270, MPV 7.5, Neut % (Auto) 67.5, Lymph % (Auto) 27.0, [place] % (Auto) 3.8, Eos % (Auto) 1.3, Baso % (Auto) 0.4, Neut # (Auto) 6.3, Lymph # (Auto) 2.5, [place] # (Auto) 0.4, Eos # (Auto) 0.1, Baso # (Auto) 0.0 09/21/18 18:20: Sodium 127 L, Potassium 4.1, Chloride 92 L, Carbon Dioxide 29, Anion Gap 10.1, BUN 14, Creatinine 0.92, Estimated Creat Clear 124, Estimated GFR 92, Est GFR ( Amer) 111, Glucose 646 H*, Calcium 8.1 L, Total Bilirubin 0.4, AST 98 H, ALT 168 H, Alkaline Phosphatase 133 H, Total Protein 7.8, Albumin 2.6 L, Globulin 5.2 H, Albumin/Globulin Ratio 0.5 L 09/21/18 18:20: Lactate 1.9 09/21/18 18:20: Acetone Level None detected 09/21/18 18:30: ESR 32 H 09/21/18 18:30: C-Reactive Protein 5.7 H 09/21/18 19:13: VBG pH 7.33, VBG pCO2 53.7 H, VBG pO2 53.4 H, VBG HCO3 27.5, VBG Total CO2 29.1 H, VBG O2 Saturation 87.6 H, VBG Base Excess 1.5 09/21/18 21:53: POC Glucose 293 H 09/21/18 23:51: POC Glucose 123 H 09/22/18 00:58: POC Glucose < 40 L* 09/22/18 01:02: POC Glucose < 40 L* 09/22/18 01:06: POC Glucose < 40 L* 09/22/18 01:10: Random Glucose 41 L* 09/22/18 01:16: POC Glucose 65 L 09/22/18 01:27: POC Glucose 75 09/22/18 01:53: POC Glucose 139 H 09/22/18 03:43: POC Glucose 312 H* 09/22/18 06:23: WBC 8.9, RBC 4.18 L, Hgb 12.3 L, Hct 37.1 L, MCV 88.6, MCH 29.5, MCHC 33.3, RDW 13.4, Plt Count 264, MPV 7.3 L, Neut % (Auto) 58.6, Lymph % (Aut o) 33.8, [place] % (Auto) 5.1, Eos % (Auto) 2.1, Baso % (Auto) 0.4, Neut # (Auto) 5.2, Lymph # (Auto) 3.0, [place] # (Auto) 0.5, Eos # (Auto) 0.2, Baso # (Auto) 0.0 09/22/18 06:23: Sodium 138, Potassium 3.6, Chloride 105, Carbon Dioxide 27, Anion Gap 9.6, BUN 11, Creatinine 0.60 L D, Estimated Creat Clear 179, Estimated GFR 150, Est GFR ( Amer) 181 D, Glucose 117 H D, Calcium 7.6 L 09/22/18 06:29: POC Glucose 97 <Pheba,Keon - 09/22/18 11:33> Temp Pulse Resp BP Pulse Ox 97.8 F 70 17 129/77 97 09/22/18 08:00 09/22/18 08:00 09/22/18 08:00 09/22/18 08:00 09/22/18 08:00 Laboratory Results - last 24 hr 09/21/18 18:20: WBC 9.3, RBC 4.51 L, Hgb 13.3 L, Hct 41.9 L, MCV 93.0, MCH 29.5, MCHC 31.8, RDW 13.0, Plt Count 270, MPV 7.5, Neut % (Auto) 67.5, Lymph % (Auto) 27.0, [place] % (Auto) 3.8, Eos % (Auto) 1.3, Baso % (Auto) 0.4, Neut # (Auto) 6.3, Lymph # (Auto) 2.5, [place] # (Auto) 0.4, Eos # (Auto) 0.1, Baso # (Auto) 0.0 09/21/18 18:20: Sodium 127 L, Potassium 4.1, Chloride 92 L, Carbon Dioxide 29, Anion Gap 10.1, BUN 14, Creatinine 0.92, Estimated Creat Clear 124, Estimated GFR 92, Est GFR ( Amer) 111, Glucose 646 H*, Calcium 8.1 L, Total Bilirubin 0.4, AST 98 H, ALT 168 H, Alkaline Phosphatase 133 H, Total Protein 7.8, Albumin 2.6 L, Globulin 5.2 H, Albumin/Globulin Ratio 0.5 L 09/21/18 18:20: Lactate 1.9 09/21/18 18:20: Acetone Level None detected 09/21/18 18:30: ESR 32 H 09/21/18 18:30: C-Reactive Protein 5.7 H 09/21/18 19:13: VBG pH 7.33, VBG pCO2 53.7 H, VBG pO2 53.4 H, VBG HCO3 27.5, VBG Total CO2 29.1 H, VBG O2 Saturation 87.6 H, VBG Base Excess 1.5 09/21/18 21:53: POC Glucose 293 H 09/21/18 23:51: POC Glucose 123 H 09/22/18 00:58: POC Glucose < 40 L* 09/22/18 01:02: POC Glucose < 40 L* 09/22/18 01:06: POC Glucose < 40 L* 09/22/18 01:10: Random Glucose 41 L* 09/22/18 01:16: POC Glucose 65 L 09/22/18 01:27: POC Glucose 75 09/22/18 01:53: POC Glucose 139 H 09/22/18 03:43: POC Glucose 312 H* 09/22/18 06:23: WBC 8.9, RBC 4.18 L, Hgb 12.3 L, Hct 37.1 L, MCV 88.6, MCH 29.5, MCHC 33.3, RDW 13.4, Plt Count 264, MPV 7.3 L, Neut % (Auto) 58.6, Lymph % (Auto) 33.8, [place] % (Auto) 5.1, Eos % (Auto) 2.1, Baso % (Auto) 0.4, Neut # (Auto) 5.2, Lymph # (Auto) 3.0, [place] # (Auto) 0.5, Eos # (Auto) 0.2, Baso # (Auto) 0.0 09/22/18 06:23: Sodium 138, Potassium 3.6, Chloride 105, Carbon Dioxide 27, Anion Gap 9.6, BUN 11, Creatinine 0.60 L D, Estimated Creat Clear 179, Estimated GFR 150, Est GFR ( Amer) 181 D, Glucose 117 H D, Calcium 7.6 L 09/22/18 06:29: POC Glucose 97 <Nasima Li - 09/22/18 09:44> I & O for Last 24 hours: Intake & Output 09/19/18 09/20/18 09/21/18 09/22/18 23:59 23:59 23:59 23:59 Intake Total 1999 Output Total 1550 / 1550 Balance 1999 470 / 470 Weight 180 lb 168 lb 8 oz <Keon Clark - 09/22/18 11:33> Intake & Output 09/19/18 09/20/18 09/21/18 09/22/18 11:59 11:59 11:59 11:59 Intake Total 3540 / 3540 Output Total 800 / 800 Balance 2740 / 2740 Weight 168 lb 8 oz <Nasima Li - 09/22/18 09:44> Microbiology Reports for the Last 24 Hours: Microbiology 09/21/18 23:10 Hand,Left Gram Stain - Final 09/21/18 23:10 Hand,Left Gram Stain - Final 09/21/18 23:10 Hand,Left - Abscess Microbiology Comment - Final Not Reportable <Keon Clark - 09/22/18 11:33> Microbiology 09/21/18 23:10 Hand,Left Gram Stain - Final 09/21/18 23:10 Hand,Left - Abscess Microbiology Comment - Final Not Reportable <Nasima Li - 09/22/18 09:44> Radiology Reports for the Last 24 Hours: 09/21/2018 x-ray of the left hand IMPRESSION: Avulsion fracture at the distal and dorsal aspect of the third metacarpal with overlying soft tissue swelling 09/21/2018 CT of the left hand IMPRESSION: 1. The findings are consistent with cellulitis with soft tissue tissue swelling/subcutaneous edema extending from the proximal left forearm into the dorsum of the hand at the level of the metacarpophalangeal joints . No abscess apparent. No evidence of osteomyelitis 2. Old fractures of the scaphoid, lunate, capitate. There is a fracture of the distal aspect of the third metacarpal age indeterminate 3. Thickened appearance of the flexor tendon of the second finger which may represent tendinosis/tendinitis. 4. Mildly prominent medial epitrochlear lymph node <Nasima Li 09/22/18 09:59> - Constitutional no acute distress <Nasima Li 09/22/18 09:59> Comments: Awakened for assessment <Nasima Li 09/22/18 09:59> - *Routine HEENT Exam Head: Present: normocephalic, atraumatic <Nasima Li 09/22/18 09:59> Eye: Present: PERRL. Absent: conjunctival icterus, scleral injection <Nasima Li 09/22/18 09:59> ENT: Present: mucous membranes moist, oropharynx clear <Nasima Li 09/22/18 09:59> - *Routine Neck Exam Present: supple. Absent: carotid bruit, lymphadenopathy, thyromegaly <Nasima Li 09/22/18 09:59> - *Routine Respiratory Exam Present: CTA bilaterally (Anteriorly and posteriorly) <Nasima Li 09/22/18 09:59> - *Routine Cardiovascular Exam Present: RRR <Nasima Li 09/22/18 09:59> - *Routine Abdominal Exam Present: soft, normoactive bowel sounds. Absent: tenderness, distended <Nasima Li 09/22/18 09:59> - *Routine Extremities Exam Comments: Left [id number] amputation. No edema of the right leg. <Nasima Li 09/22/18 10:01> - *Routine Skin Exam Comments: Exam prior to surgery per Dr. Florentino:L hand diffusely swollen throughout palm and dorsum of hand erythema extends across the entire dorsum of the hand, does not extend proximal to wrist, no palmar erythema tattoo across entire dorsum of hand (~1 month old per patient) scattered lesions across dorsum of hand, each around 2mm and raised with white center/red base, not fluctuant, nothing expressed severe pain with passive extension of all digits, unable to make a fist; pain with flexion of any digit hand soft, extremely tender, cannot palpate discrete abscess but appearance c/w deep space infection laceration over volar wrist, around 3cm proximal to wrist crease, 3-4cm long and appears superficial, though soft tissue very tender diminished motion in left wrist, pain with passive flexion/extension SILT in m/r/u distributions L hand AIN/PIN/ulnar nerves motor intact to L hand palpable radial pulse at the L wrist This a.m. postoperatively left hand with dressing and Hollis wrap to mid forearm clean and dry. Some edema of the fingers but moves all without difficulty. <Nasima Li - 09/22/18 10:05> - *Routine Neurological Exam Present: alert, oriented X3 <Nasima Li - 09/22/18 10:01> Assessment and Plan (1) Abscess of hand Current visit: Yes Status: Acute Category: Medical Code(s): L02.519 - Cutaneous abscess of unspecified hand (2) Cellulitis Current visit: Yes Status: Acute Category: Medical Code(s): L03.90 - Cellulitis, unspecified (3) IDDM (insulin dependent diabetes mellitus) Current visit: Yes Status: Acute Category: Medical Code(s): E11.9 - Type 2 diabetes mellitus without complications; Z79.4 - dedicated intermodal truck driver (current) use of insulin (4) Hyperglycemia Current visit: No Status: Acute Category: Medical Code(s): R73.9 - Hyperglycemia, unspecified (5) Status post incision and drainage Current visit: Yes Status: Acute Category: Surgical Code(s): Z98.890 - Other specified postprocedural states (6) Polysubstance abuse Current visit: Yes Status: Acute Category: Medical Code(s): F19.10 - Other psychoactive substance abuse, uncomplicated (7) Non compliance with medical treatment Current visit: Yes Status: Acute Category: Medical Code(s): Z91.19 - Patient's noncompliance with other medical treatment and regimen (8) S/P AKA (above knee amputation) Current visit: Yes Status: Acute Category: Surgical Code(s): Z89.619 - Acquired absence of unspecified leg above knee <Keon Clark - 09/22/18 11:33> (1) Abscess of hand Current visit: Yes Status: Acute Category: Medical Code(s): L02.519 - Cutaneous abscess of unspecified hand (2) Cellulitis Current visit: Yes Status: Acute Category: Medical Code(s): L03.90 - Cellulitis, unspecified (3) IDDM (insulin dependent diabetes mellitus) Current visit: Yes Status: Acute Category: Medical Code(s): E11.9 - Type 2 diabetes mellitus without complications; Z79.4 - assisted (current) use of insulin (4) Hyperglycemia Current visit: No Status: Acute Category: Medical Code(s): R73.9 - Hyperglycemia, unspecified (5) Status post incision and drainage Current visit: Yes Status: Acute Category: Surgical Code(s): Z98.890 - Other specified postprocedural states <Nasima Li - 09/22/18 10:01> - Assessment and plan all Dx Assessment and Plan for all problems:: Saw patient, agree with above note. <Keon Clark - 09/22/18 11:33> We will continue with IV fluids and antibiotics for now. Pain management and continue sliding scale insulin. Will follow Dr. Florentino's direction for wound care. <Nasima Li - 09/22/18 10:05>
--- NOTE | 2018-09-22 10:06 | Pharmacy Consult Notes ---
- Pharmacy Consult Date: 09/22/18 Time: 10:04 Referring provider: DR. BOUDREAUX Reason for Consult:: VANCOMYCIN DOSING Allergies and ADEs:: Allergies Allergy/AdvReac Type Severity Reaction Status Date / Time No Known Allergies Allergy Verified 01/05/18 05:53 Home Medications:: Home Medications Medication Instructions Recorded Confirmed Type Insulin Regular, Human [Novolin R] 28 unit SQ BID 11/10/17 09/21/18 History Buprenorphine HCl/Naloxone HCl 1 each SL BID 02/07/18 09/21/18 History [Suboxone 8 mg-2 mg Sl Film] Height: 1.83 m Weight: 76.43 kg Laboratory Results:: Laboratory Results - last 24 hr 09/21/18 18:20: WBC 9.3, RBC 4.51 L, Hgb 13.3 L, Hct 41.9 L, MCV 93.0, MCH 29.5, MCHC 31.8, RDW 13.0, Plt Count 270, MPV 7.5, Neut % (Auto) 67.5, Lymph % (Auto) 27.0, [place] % (Auto) 3.8, Eos % (Auto) 1.3, Baso % (Auto) 0.4, Neut # (Auto) 6.3, Lymph # (Auto) 2.5, [place] # (Auto) 0.4, Eos # (Auto) 0.1, Baso # (Auto) 0.0 09/21/18 18:20: Sodium 127 L, Potassium 4.1, Chloride 92 L, Carbon Dioxide 29, Anion Gap 10.1, BUN 14, Creatinine 0.92, Estimated Creat Clear 124, Estimated GFR 92, Est GFR ( Amer) 111, Glucose 646 H*, Calcium 8.1 L, Total Bilirubin 0.4, AST 98 H, ALT 168 H, Alkaline Phosphatase 133 H, Total Protein 7.8, Albumin 2.6 L, Globulin 5.2 H, Albumin/Globulin Ratio 0.5 L 09/21/18 18:20: Lactate 1.9 09/21/18 18:20: Acetone Level None detected 09/21/18 18:30: ESR 32 H 09/21/18 18:30: C-Reactive Protein 5.7 H 09/21/18 19:13: VBG pH 7.33, VBG pCO2 53.7 H, VBG pO2 53.4 H, VBG HCO3 27.5, VBG Total CO2 29.1 H, VBG O2 Saturation 87.6 H, VBG Base Excess 1.5 09/21/18 21:53: POC Glucose 293 H 09/21/18 23:51: POC Glucose 123 H 09/22/18 00:58: POC Glucose < 40 L* 09/22/18 01:02: POC Glucose < 40 L* 09/22/18 01:06: POC Glucose < 40 L* 09/22/18 01:10: Random Glucose 41 L* 09/22/18 01:16: POC Glucose 65 L 09/22/18 01:27: POC Glucose 75 09/22/18 01:53: POC Glucose 139 H 09/22/18 03:43: POC Glucose 312 H* 09/22/18 06:23: WBC 8.9, RBC 4.18 L, Hgb 12.3 L, Hct 37.1 L, MCV 88.6, MCH 29.5, MCHC 33.3, RDW 13.4, Plt Count 264, MPV 7.3 L, Neut % (Auto) 58.6, Lymph % (Auto) 33.8, [place] % (Auto) 5.1, Eos % (Auto) 2.1, Baso % (Auto) 0.4, Neut # (Auto) 5.2, Lymph # (Auto) 3.0, [place] # (Auto) 0.5, Eos # (Auto) 0.2, Baso # (Auto) 0.0 09/22/18 06:23: Sodium 138, Potassium 3.6, Chloride 105, Carbon Dioxide 27, Anion Gap 9.6, BUN 11, Creatinine 0.60 L D, Estimated Creat Clear 179, Estimated GFR 150, Est GFR ( Amer) 181 D, Glucose 117 H D, Calcium 7.6 L 09/22/18 06:29: POC Glucose 97 Medical History: Reports:: Diabetes Mellitus Type 1, Hepatitis (C) Denies:: Cancer, Diabetes Mellitus Type 2, MRSA, Seizures Assessment and Plan (1) Abscess of hand Current visit: Yes Status: Acute Category: Medical Code(s): L02.519 - Cutaneous abscess of unspecified hand (2) Cellulitis Current visit: Yes Status: Acute Category: Medical Code(s): L03.90 - Cellulitis, unspecified (3) IDDM (insulin dependent diabetes mellitus) Current visit: Yes Status: Acute Category: Medical Code(s): E11.9 - Type 2 diabetes mellitus without complications; Z79.4 - long term (current) use of insulin (4) Hyperglycemia Current visit: No Status: Acute Category: Medical Code(s): R73.9 - Hyperglycemia, unspecified - Assessment and plan all Dx Assessment and Plan for all problems:: BASED ON PATIENT FACTORS, RECOMMEND VANCOMYCIN 1500 MG IV Q12H. WILL OBTAIN VANCOMYCIN TROUGH LEVEL TOMORROW PRIOR TO 4TH DOSE. PHARMACY WILL CONTINUE TO MONITOR DAILY AND ADJUST APPROPRIATE.
--- NOTE | 2018-09-23 16:24 | Discharge Summary ---
General - General Admission date:: 09/22/18 Discharge date: 09/22/18 HPI HPI: Mr. Pat is a 38yo M with a history of type 1 diabetes mellitus, IV drug user, septic arthritis, and [id number] amputation due to getting creatinine who presented to [facility] emergency room with chief complaint of pain, swelling and redness in the left hand x2 days. He reports that he sustained a cut over the volar aspect of the L wrist from a piece of sheet metal at his home. Since then he has had pain and swelling from that site, spreading distally in the hand. He describes no erythema over the wrist, but extensive erythema over the dorsum of the hand with white pustules scattered across the same region, and extreme pain with any motion of the hand. He denies drainage from the hand and no fevers at home. His glucose was 646 on presentation to the ER. He was given 12 units humalog on arrival with decrease of blood sugar to 293. 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 He has a history of IVDU but has not injected anything in over a month; at that time he injected into the neck. He reports pain over the middle finger MCP in the past, but doesn't recall any h/o fractures. Denies punching anyone/thing recently. Denies any illegal substances in his system at the moment. He does admit to taking p.o. pain medicine a week ago for back and hip pain. Hospital Course Hospital Course: The patient had x-ray showed an avulsion fracture at the distal dorsal aspect of the third metacarpal with overlying soft tissue swelling. He had a hand CT which showed cellulitis and soft tissue swelling extending from the proximal left forearm into the dorsum of the hand at the level of the metacarpal phalangeal joints. There was no apparent abscess or evidence of osteomyelitis. There was a fracture of the distal aspect of the third metacarpal. The patient was seen in consultation by Dr. Solano who suspected a deep space infection clinically. She took the patient to the OR for an I&D and started him on vancomycin and Zosyn. In the OR she did find a left hand cellulitis with 4 small superficial abscesses. Wound cultures were taken. He was continued on IV antibiotics and IV fluids. Pain management was continued and he was also continued on sliding scale insulin. The patient did well post surgery and kept his hand elevated on 2 pillows. He did complain of some pain in the hand but it was tolerable. Dr. Stone wanted to leave the splint in place for another day and then remove it to check the wounds. She was also waiting on wound cultures which were growing gram-positive cocci. The patient ended up leaving AMA. Around 2099 because he stated he was arguing with his girlfriend and needed to leave. Nursing staff convinced him to stay but then at 2039, his sister walked in the room and he immediately called out because he wanted to sign papers to leave. The housekeeper/custodian/laundry worker discussed the importance of staying again with the patient and he still signed the AMA form. His IV was discontinue d and he left the hospital. Objective Vital signs: Temp Pulse Resp BP Pulse Ox 97.2 F L 76 18 135/70 99 09/22/18 20:00 09/22/18 20:00 09/22/18 20:00 09/22/18 20:09/22/18 20:00 Narrative: - Constitutional no acute distress Comments: Awakened for assessment - *Routine HEENT Exam Head: Present: normocephalic, atraumatic Eye: Present: PERRL. Absent: conjunctival icterus, scleral injection ENT: Present: mucous membranes moist, oropharynx clear - *Routine Neck Exam Present: supple. Absent: carotid bruit, lymphadenopathy, thyromegaly - *Routine Respiratory Exam Present: CTA bilaterally (Anteriorly and posteriorly) - *Routine Cardiovascular Exam Present: RRR - *Routine Abdominal Exam Present: soft, normoactive bowel sounds. Absent: tenderness, distended - *Routine Extremities Exam Comments: Left [id number] amputation. No edema of the right leg. Results Labs on day of discharge: Labs from last 24 hours 09/22/18 09/22/18 20:22 15:37 POC Glucose 196 H 192 H Preliminary micro results at discharge 09/21/18 23:10 Abscess Culture - Preliminary Hand,Left Gram Positive Cocci 09/21/18 23:10 Abscess Culture - Preliminary Hand,Left Gram Positive Cocci DS: Diagnosis - Discharge Diagnosis (1) Abscess of hand Status: Acute (2) Cellulitis Status: Acute (3) IDDM (insulin dependent diabetes mellitus) Status: Acute (4) Hyperglycemia Status: Acute (5) Status post incision and drainage Status: Acute (6) Polysubstance abuse Status: Acute (7) Non compliance with medical treatment Status: Acute (8) S/P AKA (above knee amputation) Status: Acute Discharge Plan - Patient Discharge Instructions Patient Instructions: DI for Cellulitis -- Adult, Type 1 Diabetes, DI for Diabetes Type 1 -- Adult, DI for Hyperglycemia -- Adult, DI for Skin Abscess - Follow up Plan Disposition: Left Against Medical Advice Home Medications: Home Medications Medication Instructions Recorded Confirmed Type Insulin Regular, Human [Novolin R] 28 unit SQ BID 11/10/17 09/21/18 History Buprenorphine HCl/Naloxone HCl 1 each SL BID 02/07/18 09/21/18 History [Suboxone 8 mg-2 mg Sl Film] Prescriptions/Medication Reconciliation: No Action Insulin Regular, Human [Novolin R] 28 unit SQ BID Buprenorphine HCl/Naloxone HCl [Suboxone 8 mg-2 mg Sl Film] 1 each SL BID
== END 2018-09-22 22:47 | disposition left against medical advice (07) | DRG 605 ==
LOC: 2ND 17:47 → ER 17:47 → 2ND 22:36 → OBSVTOIN 09-22 00:20
PROVIDERS: ADMIT Family Medicine; ATTEND Family Medicine
CPT/HCPCS: 36415; 73130; 73201; 80048; 80053; 82009; 82803; 82947; 82962; 83605; 85025; 85651; 86140; 87040; 87070; 87075; 87077; 87102; 87116; 87186; 87205; 87206; 96365; 96366; 96372; 96375; 99285; J0330; J2405; J2543; J3370; Q9967

== ENCOUNTER 2019-01-18 20:42 | Observation (INO) ==
--- NOTE | 2019-01-18 21:13 | Emergency Department Note ---
ED Disposition Clinical Impression: Hyperglycemia due to type 1 diabetes mellitus, Dehydration, Non-compliance with treatment Disposition: Admitted as Observation Condition on Discharge: Fair Referrals: Provider,Referral, [Primary Care Provider] - Time of Disposition: 00:30 - Critical Care Critical Care Time: No Attestation: On , the high probability of a clinically significant, sudden or life threatening deterioration of the following system(s) required my full and direct attention, intervention and personal management. The time I documented below is in addition to time spent performing reported procedures but includes the following listed in this critical care notation. Medical Decision Making - Medical Records Medical records reviewed: Yes: I reviewed the patient's medical records. - Dyllan Inquiry Pt receiving controlled substance: No Dyllan was queried for this patient: No Vital Signs: 01/18/19 20:47 01/19/19 00:11 Temperature 98.1 F Temperature Source Oral Pulse Rate [Right Radial] 101 H 70 Respiratory Rate 18 18 Blood Pressure [Right Arm] 144/89 H 137/93 H Blood Pressure Mean [Right Arm] 107 107 Blood Pressure Source [Right Arm] Automatic Cuff Blood Pressure Position [Right Arm] Sitting 02 Sat by Pulse Oximetry 96 100 Oxygen Delivery Method Room Air - Lab Data Lab results reviewed: Yes: I reviewed the patient's lab results. Lab Results 01/18/19 21:19: Sodium 128 L, Potassium 4.9, Chloride 94 L, Carbon Dioxide 28, Anion Gap 10.9, BUN 18, Creatinine 1.08, Estimated Creat Clear 100, Estimated GFR 76, Est GFR ( Amer) 92, Glucose 763 H*, Calcium 8.8, Total Bilirubin 0.4, AST 27, ALT 30, Alkaline Phosphatase 118 H, Troponin I < 0.02, C-Reactive Protein 0.8, Total Protein 7.9, Albumin 3.2 L, Globulin 4.7 H, Albumin/Globulin Ratio 0.7 L, Plasma/Serum Alcohol 0, Acetone Level None detected 01/18/19 21:19: Lactate 1.0 01/18/19 21:29: WBC 8.5, RBC 4.81, Hgb 13.9 L, Hct 44.2, MCV 91.9, MCH 28.8, MCHC 31.3 L, RDW 12.7, Plt Count 313, MPV 7.4, Neut % (Auto) 65.6, Lymph % (Auto) 27.0, [place] % (Auto) 6.5, Eos % (Auto) 0.7, Baso % (Auto) 0.3, Neut # (Auto) 5.6, Lymph # (Auto) 2.3, [place] # (Auto) 0.6, Eos # (Auto) 0.1, Baso # (Auto) 0.0, ESR 17 H 01/18/19 21:35: Urine Opiates Screen Negative, Urine Methadone Screen Negative, Ur Barbituates Screen Negative, Ur Phencyclidine Scrn Negative, Ur Amphetamines Screen Positive H, U Benzodiazepines Scrn Negative, Urine Cocaine Screen Neg ative, U Marijuana (THC) Screen Negative 01/18/19 21:37: Urine Color Yellow, Urine Appearance Clear, Urine pH 6.0, Ur Specific [place] <= 1.005, Urine Protein Negative, Urine Glucose (UA) 3+, Urine Ketones Trace, Urine Blood 2+, Urine Nitrate Negative, Urine Bilirubin Negative, Urine Urobilinogen 0.2, Ur Leukocyte Esterase Negative, Urine RBC 3-5, Urine WBC Occasional, Ur Squamous Epith Cells Occasional, Urine Bacteria Trace 01/18/19 22:10: VBG pH 7.33, VBG pCO2 51.5 H, VBG pO2 55.4 H, VBG HCO3 26.4, VBG Total CO2 27.9 H, VBG O2 Saturation 86.5 H, VBG Base Excess 0.4 01/18/19 23:31: POC Glucose 309 H* Result diagrams: 01/18/19 21:29 01/18/19 21:19 Orders (Tests/Meds): ED MEDICATIONS Generic Name Dose Route Start Last Admin Trade Name Roberto PRN Reason Stop Dose Admin Sodium Chloride 1,000 mls @ 999 mls/hr 01/18/19 21:00 01/18/19 21:39 Sod Chlor 0.9% 1000ml Bag IV 01/18/19 22:00 999 mls/hr .Q1H1M KEVIN Administration Sodium Chloride 1,000 mls @ 999 mls/hr 01/18/19 21:00 01/18/19 22:18 Sod Chlor 0.9% 1000ml Bag IV 01/18/19 22:00 999 mls/hr .Q1H1M KEVIN Administration Sodium Chloride 1,000 mls @ 999 mls/hr 01/18/19 22:30 01/18/19 23:26 Sod Chlor 0.9% 1000ml Bag IV 01/18/19 23:30 999 mls/hr .Q1H1M KEVIN Administration Discontinued Medications Generic Name Dose Route Start Last Admin Trade Name Roberto PRN Reason Stop Dose Admin Insulin Human Regular 15 unit 01/18/19 20:56 01/18/19 21:39 Humulin R Insulin 100 Units/Ml 10ml Vial IVP 01/18/19 20:57 15 unit ONCE ONE Administration ORDERS Category Date Time Status XR chest portable Stat Exams 01/18/19 20:53 Taken Blood Culture Stat Micro 01/18/19 21:29 Received - Physician Consults Physician Consulted: Amber Reason -: Admission Medical Clearance HPI - General Chief complaint: Medical Clearance Stated complaint: Medical Clearance, High Blood sugar Time Seen by Provider: 01/18/19 20:58 Mode of Arrival: Ambulatory Source of Information: Patient, Law Enforcement Limitations: No Limitations Description of Symptoms (Recalled from ER Triage Doc. by RN): received to ed accompanied by pd for medical clearance for retirement on warrant. pt is diaphoretic and states he thinks his sugar is high. - History of Present Illness HPI Narrative: in handcuffs, incarcerated, brought in for medical clearance. Presents diaphoretic with fsbs >500 Home medications: Home Medications Medication Instructions Recorded Confirmed Insulin Regular, Human [Novolin R] 28 unit SQ BID 11/10/17 09/21/18 Buprenorphine HCl/Naloxone HCl 1 each SL BID 02/07/18 09/21/18 [Suboxone 8 mg-2 mg Sl Film] Allergies/Adverse reactions: Allergies Allergy/AdvReac Type Severity Reaction Status Date / Time No Known Allergies Allergy Verified 01/18/19 20:51 [facility] History - Hepatitis A Screen Drug use history?: Yes High risk sexual behaviors?: No History of sexually transmitted infection?: No Currently employed?: No Childcare worker?: No Do you have indoor plumbing?: Yes Do you have electricity?: Yes Attestation statement:: This patient has been screened for Hepatitis A risk factors. I have reviewed the patient's past medical history: Yes Medical History: Reports:: Diabetes Mellitus Type 1, Hepatitis (C) Denies:: Cancer, Diabetes Mellitus Type 2, MRSA, Seizures Other Medical History: Denies: Blood Transfusion Reaction Other Surgeries: Yes: Other (left AKA, bilateral shoulder sx, right knee sx) Amputation: Yes (Left leg) Comment: Has had bilateral shoulder surgeries for septic arthritis - Social History Smoking Status: Current every day smoker Tobacco Type: cigarettes # Packs/Day (cigarettes): 1 Alcohol Intake: never Alcohol Intake Frequency:: holidays/special occasions only Substance Use Type: IV drugs Occupational Status: other Family Hx:: No significant family history, no Coronary Artery Disease, no Diabetes ROS Obtained: Yes All systems reviewed & no additional complaints - Constitutional Constitutional: Denies fever(s) - Cardiovascular Cardiovascular: Denies chest pain, Denies chest pain at rest, Denies diaphoresis, Denies dyspnea - Respiratory Respiratory: No dyspnea, No dyspnea on exertion - Gastrointestinal Gastrointestingal: Denies: abdominal pain, diarrhea, vomiting - Musculoskeletal Musculoskeletal: Denies muscle aches, Denies numbness, Denies stiffness, 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) - Integumentary/Breasts Skin/Breast: Denies rash, Denies skin pain - Neurologic Neurologic: Denies seizure-like activity, Denies syncope, Denies vertigo - Hematologic/Lymphatic Henatologic/Lymphatic: Denies system reviewed and no additional complaints, except as docu, Denies easy bleeding, Denies easy bruising Physical Exam - General General appearance: alert, in no apparent distress - Head Head exam: atraumatic, normocephalic, normal inspection - Eye Eye exam: Present: normal appearance, PERRL, EOMI - ENT ENT exam: Present: normal exam, normal oropharynx, mucous membranes moist, TM's normal bilaterally, normal external ear exam - Neck Neck exam: Present: normal inspection, full ROM, trachea midline. Absent: meningismus, lymphadenopathy - Respiratory Respiratory exam: Present: normal lung sounds bilaterally. Absent: respiratory distress - Cardiovascular Cardiovascular exam: Present: regular rate, normal rhythm - Abdominal Exam Abdominal exam: Present: soft, normal bowel sounds. Absent: distention, tenderness, guarding - Extremities Exam Extremities exam: Present: normal inspection, full ROM, normal capillary refill. Absent: calf tenderness - Back Exam Back exam: Present: normal inspection. Absent: tenderness - Neurological Exam Neurological exam: Present: alert, oriented X3. Absent: motor sensory deficit - Psychiatric Psychiatric exam: Present: normal affect, normal mood - Skin Skin exam: Present: warm, other (profusely diaphoretic, granted it is 90 degrees outside). Absent: dry
[2019-01-18 21:42] LABS: Basophils % 0.3 % (0.1-2.0); Eosinophils # 0.1 K/mm3 (0.0-0.4); Eosinophils % 0.7 % (0.1-12.0); Hematocrit 44.2 % (42.0-52.0); Hemoglobin 13.9 g/dL (14.1-18.0); Lymphocytes # 2.3 K/mm3 (0.7-4.5); Mean Corpuscular HGB Conc 31.3 g/dL (31.8-35.4); Mean Corpuscular Volume 91.9 fl (80-94); Mean Platelet Volume 7.4 fl (7.4-10.4); Monocytes # 0.6 K/mm3 (0.1-1.0); Monocytes % 6.5 % (1.7-9.3); Neutrophils # 5.6 K/mm3 (1.8-7.8); Neutrophils % 65.6 % (37.0-80.0); Platelet Count 313 K/mm3 (142-424); Red Blood Count 4.81 M/mm3 (4.60-6.20); Red Cell Distribution Width 12.7 % (11.5-17.5); White Blood Count 8.5 K/mm3 (4.8-10.8)
[2019-01-18 21:43] LABS: Microscopic, Urine URINE MICROSCOPIC (MICROSCOPIC)
[2019-01-18 21:48] LABS: Appearance,Urine CLEAR (Clear); Bilirubin,Urine Negative (Negative); Blood, Urine 2+ (Negative); Color,Urine YELLOW (Yellow); Glucose,Urine (UA) 3+ (Negative); Ketones,Urine TRACE (Negative); Leukocyte Esterase,Urine Negative (Negative); Protein,Urine Negative (Negative); Specific Gravity, Urine <= 1.005 (1.005-1.030); Urobilinogen,Urine 0.2 EU/dl (0.2)
[2019-01-18 21:56] LABS: Bacteria,Urine Trace /lpf; Squamous Epithelial Cell,Urine Occasional #/hpf (0-5); WBC,Urine Occasional #/hpf (0-3)
[2019-01-18 22:03] LABS: Amphetamine/Metha Screen,Urine Positive ng/mL (<1000); Barbiturates Screen,Urine Negative ng/mL (<200); Benzodiazepines Screen,Urine Negative ng/mL (<200); Cannabinoid Screen,Urine Negative ng/mL (<50); Cocaine Screen,Urine Negative ng/mL (<300); Methadone Screen,Urine Negative ng/mL (<300); Opiate Screen,Urine Negative ng/mL (<300); Phencyclidine Screen,Urine Negative ng/mL (<25)
[2019-01-18 22:04] LABS: Alanine Aminotransferase 30 U/L (12-78); Albumin Level 3.2 gm/dL (3.4-5.0); Albumin/Globulin Ratio 0.7 (1.1-1.8); Alkaline Phosphatase 118 U/L (46-116); Anion Gap 10.9 mEq/L (5-15); Aspartate Amino Transferase 27 U/L (15-37); Bilirubin,Total 0.4 mg/dL (0.2-1.0); Blood Urea Nitrogen 18 mg/dL (7-18); C-Reactive Protein 0.8 mg/dL (0.0-0.9); Calcium 8.8 mg/dL (8.5-10.1); Carbon Dioxide 28 mmol/L (21.0-32.0); Chloride 94 mmol/L (98-107); Globulin 4.7 gm/dl (1.3-3.2); Sodium 128 mmol/L (136-145); Total Protein,Serum 7.9 gm/dL (6.4-8.2)
[2019-01-18 22:09] LABS: Ethyl Alcohol 0 mg/dL (0-99); Glucose 763 mg/dL (74-106)
[2019-01-18 22:14] LABS: Acetone, Serum (Rapid) None Detected (None Detect)
[2019-01-18 22:18] LABS: Erythrocyte Sedimentation Rate 17 mm/hr (0-15)
[2019-01-18 22:19] LABS: VBG Base Excess 0.4 mmol/L (-2.4-2.3); VBG HCO3 26.4 mmol/L (23-30); VBG Oxygen Saturation 86.5 % (50-70); VBG PCO2 51.5 mmol/L (35-51); VBG PH 7.33 mmol/L (7.31-7.41); VBG PO2 55.4 mmol/L (28-40); VBG Total CO2 27.9 mmol/L (23-27)
[2019-01-19 02:26] LABS: Calcium 7.7 mg/dL (8.5-10.1)
[2019-01-19 07:08] LABS: Basophils # 0.1 K/mm3 (0-0.2); Basophils % 0.6 % (0.1-2.0); Eosinophils # 0.2 K/mm3 (0.0-0.4); Eosinophils % 2.1 % (0.1-12.0); Hematocrit 36.1 % (42.0-52.0); Lymphocytes # 3.7 K/mm3 (0.7-4.5); Lymphocytes % 46.4 % (10-50); Mean Corpuscular Volume 87.6 fl (80-94); Mean Platelet Volume 8.8 fl (7.4-10.4); Monocytes # 0.6 K/mm3 (0.1-1.0); Monocytes % 7.8 % (1.7-9.3); Neutrophils # 3.4 K/mm3 (1.8-7.8); Neutrophils % 43.1 % (37.0-80.0); Platelet Count 299 K/mm3 (142-424); Red Blood Count 4.13 M/mm3 (4.60-6.20); Red Cell Distribution Width 12.7 % (11.5-17.5); White Blood Count 7.9 K/mm3 (4.8-10.8)
[2019-01-19 07:09] LABS: Hemoglobin 11.9 g/dL (14.1-18.0)
--- NOTE | 2019-01-19 07:43 | Pharmacy Consult Notes ---
[facility] Pharmacy VTE Monitoring - Patient Demographics Admission date: 01/18/19 Report Date: 01/19/19 Time: 07:43 Allergies/Adverse Reactions: Patient Allergies No Known Allergies Allergy (Verified 01/18/19 20:51) Height: 1.85 m Weight: 72.575 kg Patient Problems: Current Active Problems Non compliance with medical treatment (Acute) Hyperglycemia due to type 1 diabetes mellitus (Acute) Dehydration (Acute) - VTE Risk Labs: VTE Related Lab Results Hgb 11.9 g/dL (14.1-18.0) L D 01/19/19 05:45 Hct 36.1 % (42.0-52.0) L 01/19/19 05:45 Plt Count 299 K/mm3 (142-424) 01/19/19 05:45 BUN 14 mg/dL (7-18) 01/19/19 02:00 Creatinine 0.64 mg/dL (0.70-1.30) L D 01/19/19 02:00 Estimated Creat Clear 159 mL/min (50-200) 01/19/19 02:00 Was VTE Risk Assessment Performed: Yes VTE Score: 0 VTE Risk Level: Very Low Risk - Prophylaxis VTE Prophylaxis Ordered?: Yes Types of VTE Prophylaxis: TEDS Knee High Location of Applied Device: Bilateral Lower Extremeties - VTE Diagnosis Confirmed Treatment or plan recommended: Continue Current Treatment
[2019-01-19 08:00] LABS: Anion Gap 14.1 mEq/L (5-15); Calcium 7.8 mg/dL (8.5-10.1)
--- NOTE | 2019-01-19 09:45 | H&P/Discharge Summary ---
<Nasima Li - Last Filed: 01/19/19 10:01> General - General Admission date:: 01/19/19 Discharge date: 01/19/19 *Admission Date: 01/18/19 *Chief complaint: Patient thought his blood sugar was elevated. *History of present illness: Mr. 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 Patient is known to have uncontrolled IDDM at baseline and has had multiple infections., including septic arthritis of both shoulders and the right knee. He has a history of IV drug usage and states he last used about 3 days ago. With an evaluation in the emergency room blood sugar was found to be 700+. He was diaphoretic. He was given IV fluid boluses and admitted for observation and evaluation overnight. [facility] History Medical History: Reports:: Diabetes Mellitus Type 1, Hepatitis (C), Hypertension Denies:: Cancer, Diabetes Mellitus Type 2, MRSA, Seizures *Have you ever received a pneumonia vaccine?: No *Have you received a flu vaccine this season?: No Other Medical History: Reports: Arthritis. Denies: Blood Transfusion Reaction Laterality Cases: Bilateral: Other Other Surgeries: Yes: Other Amputation: Yes (Left leg) - *Social History Educational Level: Completed High School Smoking Status: Current every day smoker Tobacco Type: cigarettes # Packs/Day (cigarettes): 1 Alcohol Intake: former Alcohol Intake Frequency:: holidays/special occasions only Substance Use Type: heroin Last Used Substance: days (ago) *Occupational Status:: disabled *Travel in the last 8 weeks: None Family Hx:: No significant family history Review of Systems - Constitutional Denies fever(s) - Eyes Denies change in vision - ENT Denies ear pain, Denies sore throat - *Cardiovascular Denies chest pain, Denies shortness of breath - *Respiratory Denies cough, Denies shortness of breath - *Gastrointestinal Reports abdominal pain, Denies constipation, Denies loose stools, Denies nausea, Denies vomiting - *Genitourinary Denies difficulty urinating - *Musculoskeletal Denies joint pain - *Neurologic Denies dizziness, Denies numbness, Denies seizure-like activity, Denies fainting, Denies dizziness Exam Vital signs and Labs for Last 24 Hours: Temp Pulse Resp BP Pulse Ox 97.1 F L 65 19 116/70 99 01/19/19 04:00 01/19/19 06:02 01/19/19 06:02 01/19/19 06:02 01/19/19 06:02 Laboratory Results - last 24 hr 01/18/19 20:50: POC Glucose > 600 H* 01/18/19 20:51: POC Glucose > 600 H* 01/18/19 21:19: Sodium 128 L, Potassium 4.9, Chloride 94 L, Carbon Dioxide 28, Anion Gap 10.9, BUN 18, Creatinine 1.08, Estimated Creat Clear 100, Estimated GFR 76, Est GFR ( Amer) 92, Glucose 763 H*, Calcium 8.8, Total Bilirubin 0.4, AST 27, ALT 30, Alkaline Phosphatase 118 H, Troponin I < 0.02, C-Reactive Protein 0.8, Total Protein 7.9, Albumin 3.2 L, Globulin 4.7 H, Albumin/Globulin Ratio 0.7 L, Plasma/Serum Alcohol 0, Acetone Level None detected 01/18/19 21:19: Lactate 1.0 01/18/19 21:29: WBC 8.5, RBC 4.81, Hgb 13.9 L, Hct 44.2, MCV 91.9, MCH 28.8, MCHC 31.3 L, RDW 12.7, Plt Count 313, MPV 7.4, Neut % (Auto) 65.6, Lymph % (Auto) 27.0, Desha % (Auto) 6.5, Eos % (Auto) 0.7, Baso % (Auto) 0.3, Neut # (Auto) 5.6, Lymph # (Auto) 2.3, Desha # (Auto) 0.6, Eos # (Auto) 0.1, Baso # (Auto) 0.0, ESR 17 H 01/18/19 21:35: Urine Opiates Screen Negative, Urine Methadone Screen Negative, Ur Barbituates Screen Negative, Ur Phencyclidine Scrn Negative, Ur Amphetamines Screen Positive H, U Benzodiazepines Scrn Negative, Urine Cocaine Screen Negative, U Marijuana (THC) Screen Negative 01/18/19 21:37: Urine Color Yellow, Urine Appearance Clear, Urine pH 6.0, Ur Specific [place] <= 1.005, Urine Protein Negative, Urine Glucose (UA) 3+, Urine Ketones Trace, Urine Blood 2+, Urine Nitrate Negative, Urine Bilirubin Negative, Urine Urobilinogen 0.2, Ur Leukocyte Esterase Negative, Urine RBC 3-5, Urine WBC Occasional, Ur Squamous Epith Cells Occasional, Urine Bacteria Trace 01/18/19 22:10: VBG pH 7.33, VBG pCO2 51.5 H, VBG pO2 55.4 H, VBG HCO3 26.4, VBG Total CO2 27.9 H, VBG O2 Saturation 86.5 H, VBG Base Excess 0.4 01/18/19 23:31: POC Glucose 309 H* 01/19/19 01:27: POC Glucose 285 H 01/19/19 02:00: Sodium 135 L, Potassium 4.0, Chloride 102, Carbon Dioxide 27, Anion Gap 10.0, BUN 14, Creatinine 0.64 L D, Estimated Creat Clear 159, Estimated GFR 139, Est GFR ( Amer) 168 D, Glucose 338 H D, Calcium 7.7 L D 01/19/19 05:44: POC Glucose 339 H* 01/19/19 05:45: WBC 7.9, RBC 4.13 L, Hgb 11.9 L D, Hct 36.1 L, MCV 87.6, MCH 28.9, MCHC 33.0, RDW 12.7, Plt Count 299, MPV 8.8, Neut % (Auto) 43.1, Lymph % (Auto) 46.4, Desha % (Auto) 7.8, Eos % (Auto) 2.1, Baso % (Auto) 0.6, Neut # (Auto) 3.4, Lymph # (Auto) 3.7, Desha # (Auto) 0.6, Eos # (Auto) 0.2, Baso # (Auto) 0.1 01/19/19 05:45: Sodium 134 L, Potassium 5.1 D, Chloride 103, Carbon Dioxide 22, Anion Gap 14.1, BUN 12, Creatinine 0.56 L, Estimated Creat Clear 182, Estimated GFR 162, Est GFR ( Amer) 197, Glucose 347 H, Calcium 7.8 L I & O for Last 24 hours: Intake & Output 01/16/19 01/17/19 01/18/19/17/19 11:59 11:59 11:59 11:59 Intake Total 3667 / 3667 Output Total 1500 / 1500 Balance 2167 / 2167 Weight 160 lb Radiology Reports for the Last 24 Hours: Chest x-ray 01/18/2019 IMPRESSION: No acute finding. Possible nipple shadows at the 5th interspace on both sides which may be confirmed with repeat exam with nipple markers - Constitutional no acute distress Comments: Awakened from sleep - *Routine HEENT Exam Eye: Present: PERRL. Absent: conjunctival icterus, scleral injection ENT: Present: mucous membranes moist - *Routine Neck Exam Absent: lymphadenopathy, thyromegaly - *Routine Respiratory Exam Present: CTA bilaterally (Anteriorly and posteriorly) - *Routine Cardiovascular Exam Present: RRR - *Routine Abdominal Exam Present: soft, normoactive bowel sounds. Absent: tenderness, distended - *Routine Extremities Exam Absent: edema, calf tenderness - *Routine Neurological Exam Present: alert Patient awakened from sleep. Yes and no answers. States he is hungry. Hospital Course Hospital Course: In the emergency room patient was given IV fluid boluses. He was continued on normal saline at 200 NS throughout the night. He initially received 15 units of regular insulin and then 15 units of Lantus. He continued on sliding scale. A.m. after admission patient denied abdominal pain, nausea, chest pain, and shortness of breath. He was hungry and ate heartily. He was voiding without problems. He was felt to be stable to be discharged. He requested prescription for Lantus which was called to [facility]. Patient was discharged in stable and satisfactory condition accompanied by the police. He is to follow-up in 1 week. Results Labs on day of discharge: Labs from last 24 hours 01/19/19 01/19/19 01/19/19 05:45 05:45 05:44 WBC 7.9 RBC 4.13 L Hgb 11.9 L D Hct 36.1 L MCV 87.6 MCH 28.9 MCHC 33.0 RDW 12.7 Plt Count 299 MPV 8.8 Neut % (Auto) 43.1 Lymph % (Auto) 46.4 Desha % (Auto) 7.8 Eos % (Auto) 2.1 Baso % (Auto) 0.6 Neut # (Auto) 3.4 Lymph # (Auto) 3.7 Desha # (Auto) 0.6 Eos # (Auto) 0.2 Baso # (Auto) 0.1 ESR VBG pH VBG pCO2 VBG pO2 VBG HCO3 VBG Total CO2 VBG O2 Saturation VBG Base Excess Sodium 134 L Potassium 5.1 D Chloride 103 Carbon Dioxide 22 Anion Gap 14.1 BUN 12 Creatinine 0.56 L Estimated Creat Clear 182 Estimated GFR 162 Est GFR ( Amer) 197 Glucose 347 H POC Glucose 339 H* Lactate Calcium 7.8 L Total Bilirubin AST ALT Alkaline Phosphatase Troponin I C-Reactive Protein Total Protein Albumin Globulin Albumin/Globulin Ratio Urine Color Urine Appearance Urine pH Ur Specific [place] Urine Protein Urine Glucose (UA) Urine Ketones Urine Blood Urine Nitrate Urine Bilirubin Urine Urobilinogen Ur Leukocyte Esterase Urine RBC Urine WBC Ur Squamous Epith Cells Urine Bacteria Urine Opiates Screen Urine Methadone Screen Ur Barbituates Screen Ur Phencyclidine Scrn Ur Amphetamines Screen U Benzodiazepines Scrn Urine Cocaine Screen U Marijuana (THC) Screen Plasma/Serum Alcohol Acetone Level 01/19/19 01/19/19 01/18/19 02:00 01:27 23:31 WBC RBC Hgb Hct MCV MCH MCHC RDW Plt Count MPV Neut % (Auto) Lymph % (Auto) Desha % (Auto) Eos % (Auto) Baso % (Auto) Neut # (Auto) Lymph # (Auto) Desha # (Auto) Eos # (Auto) Baso # (Auto) ESR VBG pH VBG pCO2 VBG pO2 VBG HCO3 VBG Total CO2 VBG O2 Saturation VBG Base Excess Sodium 135 L Potassium 4.0 Chloride 102 Carbon Dioxide 27 Anion Gap 10.0 BUN 14 Creatinine 0.64 L D Estimated Creat Clear 159 Estimated GFR 139 Est GFR ( Amer) 168 D Glucose 338 H D POC Glucose 285 H 309 H* Lactate Calcium 7.7 L D Total Bilirubin AST ALT Alkaline Phosphatase Troponin I C-Reactive Protein Total Protein Albumin Globulin Albumin/Globulin Ratio Urine Color Urine Appearance Urine pH Ur Specific [place] Urine Protein Urine Glucose (UA) Urine Ketones Urine Blood Urine Nitrate Urine Bilirubin Urine Urobilinogen Ur Leukocyte Esterase Urine RBC Urine WBC Ur Squamous Epith Cells Urine Bacteria Urine Opiates Screen Urine Methadone Screen Ur Barbituates Screen Ur Phencyclidine Scrn Ur Amphetamines Screen U Benzodiazepines Scrn Urine Cocaine Screen U Marijuana (THC) Screen Plasma/Serum Alcohol Acetone Level 01/18/19 01/18/1901/18/19 22:10 21:37 21:35 WBC RBC Hgb Hct MCV MCH MCHC RDW Plt Count MPV Neut % (Auto) Lymph % (Auto) Desha % (Auto) Eos % (Auto) Baso % (Auto) Neut # (Auto) Lymph # (Auto) Desha # (Auto) Eos # (Auto) Baso # (Auto) ESR VBG pH 7.33 VBG pCO2 51.5 H VBG pO2 55.4 H VBG HCO3 26.4 VBG Total CO2 27.9 H VBG O2 Saturation 86.5 H VBG Base Excess 0.4 Sodium Potassium Chloride Carbon Dioxide Anion Gap BUN Creatinine Estimated Creat Clear Estimated GFR Est GFR ( Amer) Glucose POC Glucose Lactate Calcium Total Bilirubin AST ALT Alkaline Phosphatase Troponin I C-Reactive Protein Total Protein Albumin Globulin Albumin/Globulin Ratio Urine Color Yellow Urine Appearance Clear Urine pH 6.0 Ur Specific [place] <= 1.005 Urine Protein Negative Urine Glucose (UA) 3+ Urine Ketones Trace Urine Blood 2+ Urine Nitrate Negative Urine Bilirubin Negative Urine Urobilinogen 0.2 Ur Leukocyte Esterase Negative Urine RBC 3-5 Urine WBC Occasional Ur Squamous Epith Cells Occasional Urine Bacteria Trace Urine Opiates Screen Negative Urine Methadone Screen Negative Ur Barbituates Screen Negative Ur Phencyclidine Scrn Negative Ur Amphetamines Screen Positive H U Benzodiazepines Scrn Negative Urine Cocaine Screen Negative U Marijuana (THC) Screen Negative Plasma/Serum Alcohol Acetone Level 01/18/19 01/18/19 01/18/19 21:29 21:19 21:19 WBC 8.5 RBC 4.81 Hgb 13.9 L Hct 44.2 MCV 91.9 MCH 28.8 MCHC 31.3 L RDW 12.7 Plt Count 313 MPV 7.4 Neut % (Auto) 65.6 Lymph % (Auto) 27.0 Desha % (Auto) 6.5 Eos % (Auto) 0.7 Baso % (Auto) 0.3 Neut # (Auto) 5.6 Lymph # (Auto) 2.3 Desha # (Auto) 0.6 Eos # (Auto) 0.1 Baso # (Auto) 0.0 ESR 17 H VBG pH VBG pCO2 VBG pO2 VBG HCO3 VBG Total CO2 VBG O2 Saturation VBG Base Excess Sodium 128 L Potassium 4.9 Chloride 94 L Carbon Dioxide 28 Anion Gap 10.9 BUN 18 Creatinine 1.08 Estimated Creat Clear 100 Estimated GFR 76 Est GFR ( Amer) 92 Glucose 763 H* POC Glucose Lactate 1.0 Calcium 8.8 Total Bilirubin 0.4 AST 27 ALT 30 Alkaline Phosphatase 118 H Troponin I < 0.02 C-Reactive Protein 0.8 Total Protein 7.9 Albumin 3.2 L Globulin 4.7 H Albumin/Globulin Ratio 0.7 L Urine Color Urine Appearance Urine pH Ur Specific [place] Urine Protein Urine Glucose (UA) Urine Ketones Urine Blood Urine Nitrate Urine Bilirubin Urine Urobilinogen Ur Leukocyte Esterase Urine RBC Urine WBC Ur Squamous Epith Cells Urine Bacteria Urine Opiates Screen Urine Methadone Screen Ur Barbituates Screen Ur Phencyclidine Scrn Ur Amphetamines Screen U Benzodiazepines Scrn Urine Cocaine Screen U Marijuana (THC) Screen Plasma/Serum Alcohol 0 Acetone Level None detected 01/18/19 01/18/19 20:51 20:50 WBC RBC Hgb Hct MCV MCH MCHC RDW Plt Count MPV Neut % (Auto) Lymph % (Auto) Desha % (Auto) Eos % (Auto) Baso % (Auto) Neut # (Auto) Lymph # (Auto) Desha # (Auto) Eos # (Auto) Baso # (Auto) ESR VBG pH VBG pCO2 VBG pO2 VBG HCO3 VBG Total CO2 VBG O2 Saturation VBG Base Excess Sodium Potassium Chloride Carbon Dioxide Anion Gap BUN Creatinine Estimated Creat Clear Estimated GFR Est GFR ( Amer) Glucose POC Glucose > 600 H* > 600 H* Lactate Calcium Total Bilirubin AST ALT Alkaline Phosphatase Troponin I C-Reactive Protein Total Protein Albumin Globulin Albumin/Globulin Ratio Urine Color Urine Appearance Urine pH Ur Specific [place] Urine Protein Urine Glucose (UA) Urine Ketones Urine Blood Urine Nitrate Urine Bilirubin Urine Urobilinogen Ur Leukocyte Esterase Urine RBC Urine WBC Ur Squamous Epith Cells Urine Bacteria Urine Opiates Screen Urine Methadone Screen Ur Barbituates Screen Ur Phencyclidine Scrn Ur Amphetamines Screen U Benzodiazepines Scrn Urine Cocaine Screen U Marijuana (THC) Screen Plasma/Serum Alcohol Acetone Level DS: Diagnosis - Discharge Diagnosis (1) Dehydration Status: Acute (2) Hyperglycemia due to type 1 diabetes mellitus Status: Acute (3) Non compliance with medical treatment Status: Acute (4) Hyperglycemia Status: Acute (5) History of drug abuse Status: Chronic Discharge Plan - Patient Discharge Instructions ACTIVITY: Continue current activity DIET: continue same diet Additional Instructions: Please provide drug treatment information to patient. Patient Instructions: Drug Abuse and Drug Addiction, DI for Dehydration -- Adult, DI for Diabetes Type 1 -- Adult, DI for Drug Abuse and Drug Addiction, DI for Hyperglycemia -- Adult - Follow up Plan Follow up with: Keon Clark MD [Staff Physician] - 01/26/19 11:15 am Unknown provider or service follow up:: 01/19/19 08:50. Patient to follow up with his primary MD in [place], [place]. Disposition: Home, Self-[facility] Medications: Home Medications Medication Instructions Recorded Confirmed Type Buprenorphine HCl/Naloxone HCl 1 each SL BID 02/07/18 01/19/19 History [Suboxone 8 mg-2 mg Sl Film] Insulin Glargine,Hum.rec.anlog 56 unit SQ DAILY #5 insuln.pen 01/19/19 Rx [Insulin Glargine 100 Units/mL 3mL flexpen] Prescriptions/Medication Reconciliation: New Insulin Glargine,Hum.rec.anlog [Insulin Glargine 100 Units/mL 3mL flexpen] 56 unit SQ DAILY #5 insuln.pen Continued Buprenorphine HCl/Naloxone HCl [Suboxone 8 mg-2 mg Sl Film] 1 each SL BID Discontinued Insulin Regular, Human [Novolin R] 28 unit SQ BID - Problem Reconciliation Problems Reviewed?: Yes <Keon Clark - Last Filed: 01/19/19 10:28> General - General Admission date:: 01/19/19 Exam Vital signs and Labs for Last 24 Hours: Temp Pulse Resp BP Pulse Ox 98.1 F 66 18 127/81 100 01/19/19 08:00 01/19/19 08:00 01/19/19 08:00 01/19/19 08:00 01/19/19 08:00 Laboratory Results - last 24 hr 01/18/19 20:50: POC Glucose > 600 H* 01/18/19 20:51: POC Glucose > 600 H* 01/18/19 21:19: Sodium 128 L, Potassium 4.9, Chloride 94 L, Carbon Dioxide 28, Anion Gap 10.9, BUN 18, Creatinine 1.08, Estimated Creat Clear 100, Estimated GFR 76, Est GFR ( Amer) 92, Glucose 763 H*, Calcium 8.8, Total Bilirubin 0.4, AST 27, ALT 30, Alkaline Phosphatase 118 H, Troponin I < 0.02, C-Reactive Protein 0.8, Total Protein 7.9, Albumin 3.2 L, Globulin 4.7 H, Albumin/Globulin Ratio 0.7 L, Plasma/Serum Alcohol 0, Acetone Level None detected 01/18/19 21:19: Lactate 1.0 01/18/19 21:29: WBC 8.5, RBC 4.81, Hgb 13.9 L, Hct 44.2, MCV 91.9, MCH 28.8, MCHC 31.3 L, RDW 12.7, Plt Count 313, MPV 7.4, Neut % (Auto) 65.6, Lymph % (Auto) 27.0, Desha % (Auto) 6.5, Eos % (Auto) 0.7, Baso % (Auto) 0.3, Neut # (Auto) 5.6, Lymph # (Auto) 2.3, Desha # (Auto) 0.6, Eos # (Auto) 0.1, Baso # (Auto) 0.0, ESR 17 H 01/18/19 21:35: Urine Opiates Screen Negative, Urine Methadone Screen Negative, Ur Barbituates Screen Negative, Ur Phencyclidine Scrn Negative, Ur Amphetamines Screen Positive H, U Benzodiazepines Scrn Negative, Urine Cocaine Screen Negative, U Marijuana (THC) Screen Negative 01/18/19 21:37: Urine Color Yellow, Urine Appearance Clear, Urine pH 6.0, Ur Specific [place] <= 1.005, Urine Protein Negative, Urine Glucose (UA) 3+, Urine Ketones Trace, Urine Blood 2+, Urine Nitrate Negative, Urine Bilirubin Negative, Urine Urobilinogen 0.2, Ur Leukocyte Esterase Negative, Urine RBC 3-5, Urine WBC Occasional, Ur Squamous Epith Cells Occasional, Urine Bacteria Trace 01/18/19 22:10: VBG pH 7.33, VBG pCO2 51.5 H, VBG pO2 55.4 H, VBG HCO3 26.4, VBG Total CO2 27.9 H, VBG O2 Saturation 86.5 H, VBG Base Excess 0.4 01/18/19 23:31: POC Glucose 309 H* 01/19/19 01:27: POC Glucose 285 H 01/19/19 02:00: Sodium 135 L, Potassium 4.0, Chloride 102, Carbon Dioxide 27, Anion Gap 10.0, BUN 14, Creatinine 0.64 L D, Estimated Creat Clear 159, Estimated GFR 139, Est GFR ( Amer) 168 D, Glucose 338 H D, Calcium 7.7 L D 01/19/19 05:44: POC Glucose 339 H* 01/19/19 05:45: WBC 7.9, RBC 4.13 L, Hgb 11.9 L D, Hct 36.1 L, MCV 87.6, MCH 28.9, MCHC 33.0, RDW 12.7, Plt Count 299, MPV 8.8, Neut % (Auto) 43.1, Lymph % (Auto) 46.4, Desha % (Auto) 7.8, Eos % (Auto) 2.1, Baso % (Auto) 0.6, Neut # (Auto) 3.4, Lymph # (Auto) 3.7, Desha # (Auto) 0.6, Eos # (Auto) 0.2, Baso # (Auto) 0.1 01/19/19 05:45: Sodium 134 L, Potassium 5.1 D, Chloride 103, Carbon Dioxide 22, Anion Gap 14.1, BUN 12, Creatinine 0.56 L, Estimated Creat Clear 182, Estimated GFR 162, Est GFR ( Amer) 197, Glucose 347 H, Calcium 7.8 L I & O for Last 24 hours: Intake & Output 01/16/19 01/17/19 01/18/19 01/19/19 23:59 23:59 23:59 23:59 Intake Total 4027 / 4027 Output Total 500 / 500 1000 / 1000 Balance -500 / -500 3027 / 3027 Weight 170 lb 160 lb Hospital Course Hospital Course: Saw patient, agree with above note. Results Labs on day of discharge: Labs from last 24 hours 01/19/19 01/19/19 01/19/19 05:45 05:45 05:44 WBC 7.9 RBC 4.13 L Hgb 11.9 L D Hct 36.1 L MCV 87.6 MCH 28.9 MCHC 33.0 RDW 12.7 Plt Count 299 MPV 8.8 Neut % (Auto) 43.1 Lymph % (Auto) 46.4 Desha % (Auto) 7.8 Eos % (Auto) 2.1 Baso % (Auto) 0.6 Neut # (Auto) 3.4 Lymph # (Auto) 3.7 Desha # (Auto) 0.6 Eos # (Auto) 0.2 Baso # (Auto) 0.1 ESR VBG pH VBG pCO2 VBG pO2 VBG HCO3 VBG Total CO2 VBG O2 Saturation VBG Base Excess Sodium 134 L Potassium 5.1 D Chloride 103 Carbon Dioxide 22 Anion Gap 14.1 BUN 12 Creatinine 0.56 L Estimated Creat Clear 182 Estimated GFR 162 Est GFR ( Amer) 197 Glucose 347 H POC Glucose 339 H* Lactate Calcium 7.8 L Total Bilirubin AST ALT Alkaline Phosphatase Troponin I C-Reactive Protein Total Protein Albumin Globulin Albumin/Globulin Ratio Urine Color Urine Appearance Urine pH Ur Specific [place] Urine Protein Urine Glucose (UA) Urine Ketones Urine Blood Urine Nitrate Urine Bilirubin Urine Urobilinogen Ur Leukocyte Esterase Urine RBC Urine WBC Ur Squamous Epith Cells Urine Bacteria Urine Opiates Screen Urine Methadone Screen Ur Barbituates Screen Ur Phencyclidine Scrn Ur Amphetamines Screen U Benzodiazepines Scrn Urine Cocaine Screen U Marijuana (THC) Screen Plasma/Serum Alcohol Acetone Level 01/19/19 01/19/19 01/18/19 02:00 01:27 23:31 WBC RBC Hgb Hct MCV MCH MCHC RDW Plt Count MPV Neut % (Auto) Lymph % (Auto) Desha % (Auto) Eos % (Auto) Baso % (Auto) Neut # (Auto) Lymph # (Auto) Desha # (Auto) Eos # (Auto) Baso # (Auto) ESR VBG pH VBG pCO2 VBG pO2 VBG HCO3 VBG Total CO2 VBG O2 Saturation VBG Base Excess Sodium 135 L Potassium 4.0 Chloride 102 Carbon Dioxide 27 Anion Gap 10.0 BUN 14 Creatinine 0.64 L D Estimated Creat Clear 159 Estimated GFR 139 Est GFR ( Amer) 168 D Glucose 338 H D POC Glucose 285 H 309 H* Lactate Calcium 7.7 L D Total Bilirubin AST ALT Alkaline Phosphatase Troponin I C-Reactive Protein Total Protein Albumin Globulin Albumin/Globulin Ratio Urine Color Urine Appearance Urine pH Ur Specific [place] Urine Protein Urine Glucose (UA) Urine Ketones Urine Blood Urine Nitrate Urine Bilirubin Urine Urobilinogen Ur Leukocyte Esterase Urine RBC Urine WBC Ur Squamous Epith Cells Urine Bacteria Urine Opiates Screen Urine Methadone Screen Ur Barbituates Screen Ur Phencyclidine Scrn Ur Amphetamines Screen U Benzodiazepines Scrn Urine Cocaine Screen U Marijuana (THC) Screen Plasma/Serum Alcohol Acetone Level 01/18/19 01/18/19 01/18/19 22:10 21:37 21:35 WBC RBC Hgb Hct MCV MCH MCHC RDW Plt Count MPV Neut % (Auto) Lymph % (Auto) Desha % (Auto) Eos % (Auto) Baso % (Auto) Neut # (Auto) Lymph # (Auto) Desha # (Auto) Eos # (Auto) Baso # (Auto) ESR VBG pH 7.33 VBG pCO2 51.5 H VBG pO2 55.4 H VBG HCO3 26.4 VBG Total CO2 27.9 H VBG O2 Saturation 86.5 H VBG Base Excess 0.4 Sodium Potassium Chloride Carbon Dioxide Anion Gap BUN Creatinine Estimated Creat Clear Estimated GFR Est GFR ( Amer) Glucose POC Glucose Lactate Calcium Total Bilirubin AST ALT Alkaline Phosphatase Troponin I C-Reactive Protein Total Protein Albumin Globulin Albumin/Globulin Ratio Urine Color Yellow Urine Appearance Clear Urine pH 6.0 Ur Specific [place] <= 1.005 Urine Protein Negative Urine Glucose (UA) 3+ Urine Ketones Trace Urine Blood 2+ Urine Nitrate Negative Urine Bilirubin Negative Urine Urobilinogen 0.2 Ur Leukocyte Esterase Negative Urine RBC 3-5 Urine WBC Occasional Ur Squamous Epith Cells Occasional Urine Bacteria Trace Urine Opiates Screen Negative Urine Methadone Screen Negative Ur Barbituates Screen Negative Ur Phencyclidine Scrn Negative Ur Amphetamines Screen Positive H U Benzodiazepines Scrn Negative Urine Cocaine Screen Negative U Marijuana (THC) Screen Negative Plasma/Serum Alcohol Acetone Level 01/18/19 01/18/19 01/18/19 21:29 21:19 21:19 WBC 8.5 RBC 4.81 Hgb 13.9 L Hct 44.2 MCV 91.9 MCH 28.8 MCHC 31.3 L RDW 12.7 Plt Count 313 MPV 7.4 Neut % (Auto) 65.6 Lymph % (Auto) 27.0 Desha % (Auto) 6.5 Eos % (Auto) 0.7 Baso % (Auto) 0.3 Neut # (Auto) 5.6 Lymph # (Auto) 2.3 Desha # (Auto) 0.6 Eos # (Auto) 0.1 Baso # (Auto) 0.0 ESR 17 H VBG pH VBG pCO2 VBG pO2 VBG HCO3 VBG Total CO2 VBG O2 Saturation VBG Base Excess Sodium 128 L Potassium 4.9 Chloride 94 L Carbon Dioxide 28 Anion Gap 10.9 BUN 18 Creatinine 1.08 Estimated Creat Clear 100 Estimated GFR 76 Est GFR ( Amer) 92 Glucose 763 H* POC Glucose Lactate 1.0 Calcium 8.8 Total Bilirubin 0.4 AST 27 ALT 30 Alkaline Phosphatase 118 H Troponin I < 0.02 C-Reactive Protein 0.8 Total Protein 7.9 Albumin 3.2 L Globulin 4.7 H Albumin/Globulin Ratio 0.7 L Urine Color Urine Appearance Urine pH Ur Specific [place] Urine Protein Urine Glucose (UA) Urine Ketones Urine Blood Urine Nitrate Urine Bilirubin Urine Urobilinogen Ur Leukocyte Esterase Urine RBC Urine WBC Ur Squamous Epith Cells Urine Bacteria Urine Opiates Screen Urine Methadone Screen Ur Barbituates Screen Ur Phencyclidine Scrn Ur Amphetamines Screen U Benzodiazepines Scrn Urine Cocaine Screen U Marijuana (THC) Screen Plasma/Serum Alcohol 0 Acetone Level None detected 01/18/19 01/18/19 20:51 20:50 WBC RBC Hgb Hct MCV MCH MCHC RDW Plt Count MPV Neut % (Auto) Lymph % (Auto) Desha % (Auto) Eos % (Auto) Baso % (Auto) Neut # (Auto) Lymph # (Auto) Desha # (Auto) Eos # (Auto) Baso # (Auto) ESR VBG pH VBG pCO2 VBG pO2 VBG HCO3 VBG Total CO2 VBG O2 Saturation VBG Base Excess Sodium Potassium Chloride Carbon Dioxide Anion Gap BUN Creatinine Estimated Creat Clear Estimated GFR Est GFR ( Amer) Glucose POC Glucose > 600 H* > 600 H* Lactate Calcium Total Bilirubin AST ALT Alkaline Phosphatase Troponin I C-Reactive Protein Total Protein Albumin Globulin Albumin/Globulin Ratio Urine Color Urine Appearance Urine pH Ur Specific [place] Urine Protein Urine Glucose (UA) Urine Ketones Urine Blood Urine Nitrate Urine Bilirubin Urine Urobilinogen Ur Leukocyte Esterase Urine RBC Urine WBC Ur Squamous Epith Cells Urine Bacteria Urine Opiates Screen Urine Methadone Screen Ur Barbituates Screen Ur Phencyclidine Scrn Ur Amphetamines Screen U Benzodiazepines Scrn Urine Cocaine Screen U Marijuana (THC) Screen Plasma/Serum Alcohol Acetone Level DS: Diagnosis - Discharge Diagnosis (1) Dehydration Status: Acute (2) Hyperglycemia due to type 1 diabetes mellitus Status: Acute (3) Non compliance with medical treatment Status: Acute (4) Hyperglycemia Status: Acute (5) History of drug abuse Status: Chronic Discharge Plan - Problem Reconciliation Problems Reviewed?: Yes
--- NOTE | 2019-01-19 16:04 | Electrocardiograph Report ---
APPROVED REPORT Exam: Resting ECG HR:92 bpm ECG Measurements Heart Rate 92 AXES IN 172 P 67 QRSd 112 QRS 26 QT 368 T51 QTc 455 <Conclusion> Normal sinus rhythm Possible Left atrial enlargement Incomplete right bundle branch block Borderline ECG Electronically signed by : Rafi De Los Santos, 01/19/2019 16:04:10
== END 2019-01-19 09:42 | disposition home or self-care (01) ==
LOC: 2ND 20:42 → ER 20:42 → 2ND 01-19 01:22
PROVIDERS: ADMIT Family Medicine; ATTEND Family Medicine
CPT/HCPCS: 36415; 71010; 71045; 80048; 80053; 80305; 81001; 82009; 82803; 82962; 83605; 84484; 85025; 85651; 86140; 87040; 93005; 96365; 96366; 96375; 99285; G0378

== ENCOUNTER 2019-07-30 13:17 | Inpatient (IN) ==
--- NOTE | 2019-07-30 13:24 | Emergency Department Note ---
ED Disposition Clinical Impression: Diabetic ketoacidosis Qualifiers: Diabetes mellitus type: type 1 Diabetes mellitus complication detail: without coma Qualified Code(s): E10.10 - Type 1 diabetes mellitus with ketoacidosis without coma Disposition: Admitted As Inpatient Condition on Discharge: Fair Referrals: Lyla Mireles [Primary Care Provider] - - Critical Care Critical Care Time: Yes Attestation: On , the high probability of a clinically significant, sudden or life threatening deterioration of the following system(s) required my full and direct attention, intervention and personal management. The time I documented below is in addition to time spent performing reported procedures but includes the following listed in this critical care notation. Total Critical Care Time: 35 Vital system(s) involved:: Metabolic Failure My critical care processes included: Assessment & monitoring of V/S, Initial and Re-exams, Data Review/Interpretation, Coordinating Care, Medication Orders and management, Documentation Medical Decision Making - Dyllan Inquiry Pt receiving controlled substance: No Dyllan was queried for this patient: Yes Reference #:: [id number] Comment: 13 suboxone rxs, last 12/24/18 Vital Signs: 07/30/19 13:18 Temperature 98.2 F Temperature Source Oral Pulse Rate [Right Radial] 106 H Respiratory Rate 18 Blood Pressure [Right Arm] 146/64 H Blood Pressure Mean [Right Arm] 91 Blood Pressure Source [Right Arm] Automatic Cuff Blood Pressure Position [Right Arm] Sitting 02 Sat by Pulse Oximetry 97 Oxygen Delivery Method Room Air - Lab Data Lab Results 07/30/19 13:30: Urine Color Yellow, Urine Appearance Clear, Urine pH 5.5, Ur Specific [place] 1.025, Urine Protein Negative, Urine Glucose (UA) 3+, Urine Ketones 3+, Urine Blood 1+, Urine Nitrate Negative, Urine Bilirubin Negative, Urine Urobilinogen 0.2, Ur Leukocyte Esterase Negative, Urine RBC 3-5, Urine WBC 3-5, Ur Squamous Epith Cells Occasional, Urine Bacteria Trace 07/30/19 13:30: WBC 12.9 H, RBC 5.45, Hgb 16.0, Hct 50.7, MCV 93.1, MCH 29.5, MCHC 31.6 L, RDW 12.7, Plt Count 369, MPV 8.9, Neut % (Auto) 84.7 H, Lymph % (Auto) 12.4, [place] % (Auto) 2.0, Eos % (Auto) 0.3, Baso % (Auto) 0.5, Neut # (Auto) 11.0 H, Lymph # (Auto) 1.6, [place] # (Auto) 0.3, Eos # (Auto) 0.0, Baso # (Auto) 0.1 07/30/19 13:30: Sodium 132 L, Potassium 4.8, Chloride 93 L, Carbon Dioxide 14 L, Anion Gap 29.8 H, BUN 33 H, Creatinine 0.90, Estimated Creat Clear 122, Estimated GFR 93, Est GFR ( Amer) 113, Glucose 578 H*, Calcium 9.4, Total Bilirubin 0.7, AST 64 H, ALT 69, Alkaline Phosphatase 152 H, Total Protein 8.3 H , Albumin 4.6, Globulin 3.7 H, Albumin/Globulin Ratio 1.2, Acetone Level Small 07/30/19 13:30: Urine Opiates Screen Negative, Urine Methadone Screen Negative, Ur Barbituates Screen Negative, Ur Phencyclidine Scrn Negative, Ur Amphetamines Screen Negative, U Benzodiazepines Scrn Negative, Urine Cocaine Screen Negative, U Marijuana (THC) Screen Negative 07/30/19 13:30: Troponin I < 0.01 07/30/19 13:35: VBG pH 7.26 L, VBG pCO2 28.4 L, VBG pO2 132.0 H, VBG HCO3 12.5 L , VBG Total CO2 13.4 L, VBG O2 Saturation 98.3 H, VBG Base Excess -14.5 L Result diagrams: 07/30/19 13:30 07/30/19 13:30 Orders (Tests/Meds): ED MEDICATIONS Generic Name Dose Route Start Last Admin Trade Name Freq PRN Reason Stop Dose Admin Insulin Human Regular 100 unit 101 mls @ 8.017 mls/hr 07/30/19 15:00 / Sodium Chloride IV 08/29/19 14:59 .[id number] KEVIN Protocol 0.1 UNITS/KG/HR Discontinued Medications Generic Name Dose Route Start Last Admin Trade Name Freq PRN Reason Stop Dose Admin Sodium Chloride 1,000 mls @ 999 mls/hr 07/30/19 13:45 07/30/19 13:39 Sod Chlor 0.9% 1000ml Bag IV 07/30/19 14:45 999 mls/hr .Q1H1M KEVIN Administration Ondansetron HCl 4 mg 07/30/19 13:32 07/30/19 13:39 Zofran 4mg/2ml Vial IV 07/30/19 13:33 4 mg ONCE ONE Administration Sodium Chloride 1,000 ml 07/30/19 15:00 Sod Chlor 0.9% 1000ml Bag IV 07/30/19 15:01 BOLUS ONE ORDERS Category Date Time Status Lactic Acid Stat Lab 07/30/19 15:06 Ordered Troponin I Q3H Lab 07/30/19 16:45 Ordered Troponin I Q3H Lab 07/30/19 19:45 Ordered - ECG Data Tracing #1 EKG interpreted by Santy Álvarez MD: Rhythm: sinus Rate: 99 [place]: normal Ectopy: none Conduction: normal ST Segment Changes: none T Wave Changes: none Q Waves: none No evidence of acute ischemia or injury - Physician Consults Physician Consulted: Amber Time: 15:07 Reason -: Admission Comment/Response: Agrees to admit the patient to the hospital. We discussed the patient's clinical information, including history, exam, laboratory and radiology results and ED course. Per hospital procedure, I will write temporary bridge inpatient orders on the patient. Specific orders requested by the admitting physician: Lactic acid level. Continue insulin drip, normal saline. - Reevaluation(s) Time: 15:03 General Adult HPI - General Chief complaint: Nausea/Vomiting/Diarrhea Stated complaint: N/V, HYPERGLYCEMIA Time Seen by Provider: 07/30/19 13:23 - History of Present Illness HPI narrative: Brought in by ambulance. 2-day history of vomiting about 8 times total and high blood sugar, 437 yesterday. Type I diabetic. He is using NPH insulin 28 units twice a day and sliding scale regular insulin with each meal. He is also supposed to be on Lantus, but cannot afford it. Denies any pain, denies diarr hea, denies fever. Denies URI symptoms including cough. He has thirst. He has pain in his legs. - Related Data Home Medications Medication Instructions Recorded Confirmed Buprenorphine HCl/Naloxone HCl 1 each SL BID 02/07/18 01/19/19 [Suboxone 8 mg-2 mg Sl Film] Previous Rx's Medication Instructions Recorded Insulin Glargine,Hum.rec.anlog 56 unit SQ DAILY #5 insuln.pen 01/19/19 [Insulin Glargine 100 Units/mL 3mL flexpen] Glucagon,Human Recombinant 1 mg IJ NEEDED PRN #1 kit 05/10/19 [Glucagon Emergency Kit] Allergies Allergy/AdvReac Type Severity Reaction Status Date / Time No Known Allergies Allergy Verified 01/18/19 20:51 [facility] History - Hepatitis A Screen Attestation statement:: This patient has been screened for Hepatitis A risk factors. I have reviewed the patient's past medical history: Yes Medical History: Reports:: Diabetes Mellitus Type 1, Hepatitis (C), Hypertension Denies:: Cancer, Diabetes Mellitus Type 2, MRSA, Seizures Other Medical History: Reports: Arthritis. Denies: Blood Transfusion Reaction Laterality Cases: Bilateral: Other Other Surgeries: Yes: Other (left AKA, bilateral shoulder sx, right knee sx D/T SEPTIC ARTHRITIS) Amputation: Yes (Left leg) Comment: Has had bilateral shoulder surgeries for septic arthritis - Social History Smoking Status: Current every day smoker Tobacco Type: cigarettes # Packs/Day (cigarettes): 1 Alcohol Intake: current Alcohol Intake Frequency:: holidays/special occasions only Substance Use Type: IV drugs Occupational Status: disabled Housing: house Family Hx:: No significant family history ROS Obtained: Yes All systems reviewed & no additional complaints - Constitutional Constitutional: Reports body ache, Denies fever(s) - ENT Ears, Nose, Mouth, and Throat: Denies nasal discharge, Denies sore throat - Cardiovascular Cardiovascular: Denies chest pain - Respiratory Respiratory: No dyspnea - Gastrointestinal Gastrointestingal: Reports: nausea, vomiting. Denies: abdominal pain, diarrhea Physical Exam - General General appearance: alert, in no apparent distress - Head Head exam: atraumatic, normocephalic - Eye Eye exam: Present: normal appearance, EOMI - ENT ENT exam: Present: mucous membranes dry - Neck Neck exam: Present: normal inspection, trachea midline - Chest Chest inspection: Present: normal inspection, symmetric chest wall rise - Respiratory Respiratory exam: Present: normal lung sounds bilaterally. Absent: respiratory distress - Cardiovascular Cardiovascular exam: Present: regular rate, normal rhythm, normal heart sounds - Abdominal Exam Abdominal exam: Present: soft, normal bowel sounds. Absent: distention, tenderness - Extremities Exam Extremities exam: Present: other (Left [id number] amputation) - Neurological Exam Neurological exam: Present: alert, oriented X3, CN II-XII intact. Absent: motor sensory deficit - Psychiatric Psychiatric exam: Present: normal affect, normal mood - Skin Skin exam: Present: warm, dry
[2019-07-30 13:40] LABS: Microscopic, Urine URINE MICROSCOPIC (MICROSCOPIC)
[2019-07-30 13:52] LABS: Appearance,Urine CLEAR (Clear); Bilirubin,Urine Negative (Negative); Blood, Urine 1+ (Negative); Color,Urine YELLOW (Yellow); Glucose,Urine (UA) 3+ (Negative); Ketones,Urine 3+ (Negative); Leukocyte Esterase,Urine Negative (Negative); PH,Urine 5.5 (5.0-8.5); Protein,Urine Negative (Negative); Specific Gravity, Urine 1.025 (1.005-1.030); Urobilinogen,Urine 0.2 EU/dl (0.2)
[2019-07-30 14:01] LABS: Chloride 93 mmol/L (98-107); Sodium 132 mmol/L (136-145)
[2019-07-30 14:02] LABS: Basophils # 0.1 K/mm3 (0-0.2); Basophils % 0.5 % (0.1-2.0); Eosinophils % 0.3 % (0.1-12.0); Hematocrit 50.7 % (42.0-52.0); Lymphocytes # 1.6 K/mm3 (0.7-4.5); Lymphocytes % 12.4 % (10-50); Mean Corpuscular HGB Conc 31.6 g/dL (31.8-35.4); Mean Corpuscular Volume 93.1 fl (80-94); Mean Platelet Volume 8.9 fl (7.4-10.4); Monocytes # 0.3 K/mm3 (0.1-1.0); Neutrophils % 84.7 % (37.0-80.0); Platelet Count 369 K/mm3 (142-424); Red Blood Count 5.45 M/mm3 (4.60-6.20); Red Cell Distribution Width 12.7 % (11.5-17.5); White Blood Count 12.9 K/mm3 (4.8-10.8)
[2019-07-30 14:03] LABS: Alanine Aminotransferase 69 U/L (12-78); Aspartate Amino Transferase 64 U/L (17-59); Blood Urea Nitrogen 33 mg/dl (9-20)
[2019-07-30 14:04] LABS: Albumin Level 4.6 g/dl (3.5-5.0); Albumin/Globulin Ratio 1.2 (1.1-1.8); Alkaline Phosphatase 152 U/L (38-126); Anion Gap 29.8 mEq/L (5-15); Bilirubin,Total 0.7 mg/dl (0.2-1.3); Calcium 9.4 mg/dl (8.4-10.2); Carbon Dioxide 14 mmol/L (22.0-30.0); Globulin 3.7 g/dL (1.3-3.2); Total Protein,Serum 8.3 g/dl (6.3-8.2)
[2019-07-30 14:05] LABS: Barbiturates Screen,Urine Negative ng/ml (<200)
[2019-07-30 14:06] LABS: Benzodiazepines Screen,Urine Negative ng/ml (<200)
[2019-07-30 14:07] LABS: Amphetamine/Metha Screen,Urine Negative ng/ml (<1000); Cannabinoid Screen,Urine Negative ng/ml (<50)
[2019-07-30 14:08] LABS: Cocaine Screen,Urine Negative ng/ml (<300)
[2019-07-30 14:09] LABS: Methadone Screen,Urine Negative ng/ml (<300); Opiate Screen,Urine Negative ng/ml (<300)
[2019-07-30 14:10] LABS: Phencyclidine Screen,Urine Negative ng/ml (<25)
[2019-07-30 14:12] LABS: Glucose 578 mg/dl (74-100)
[2019-07-30 14:18] LABS: VBG Base Excess -14.5 mmol/L (-2.4-2.3); VBG HCO3 12.5 mmol/L (23-30); VBG Oxygen Saturation 98.3 % (50-70); VBG PCO2 28.4 mmol/L (35-51); VBG PH 7.26 mmol/L (7.31-7.41); VBG Total CO2 13.4 mmol/L (23-27)
[2019-07-30 14:50] LABS: Bacteria,Urine Trace /lpf; Squamous Epithelial Cell,Urine Occasional #/hpf (0-5)
[2019-07-30 14:52] LABS: Acetone, Serum (Rapid) Small (None Detect)
--- NOTE | 2019-07-30 15:43 | History & Physical Report ---
*Admission Date: 07/30/19 <Shruti Sanchez 07/30/19 15:45> *Chief complaint: vomiting, abdominal pain <Shruti Sanchez 07/30/19 15:45> *History of present illness: Mr. Pat is a Type 1 diabetic who was brought into the ER by ambulance with a 2-day history of vomiting, nausea, and high blood sugar. He has vomited approximately 6-8 times and his sugar was 437 yesterday. He is currently using NPH insulin and taking 28 units twice a day along with a regular sliding scale insulin with each meal. He was supposed to be on Lantus but could not afford it. The only other medication he has been taking is suboxone but he has not had this in four days either. He denies any pain other than in his legs. He states they ache. He denies any diarrhea or fever. He was evaluated in the emergency room and his white blood cell count was found to be elevated at 12.9. His glucose was 578, and his pH was 7.26. His acetone level was small. A lactic acid is pending. The patient was admitted for DKA and placed on insulin drip as well as IV fluids. <Shruti Sanchez 07/30/19 16:22> [facility] History I have reviewed the patient's past medical history: Yes <Shruti Sanchez 07/30/19 15:45> Medical History: Reports:: Diabetes Mellitus Type 1, Hepatitis (C), Hypertension Denies:: Cancer, Diabetes Mellitus Type 2, MRSA, Seizures <Shruti Sanchez 07/30/19 15:45> *Have you ever received a pneumonia vaccine?: No <Shruti Sanchez 07/30/19 15:45> *Have you received a flu vaccine this season?: No <Shruti Sanchez 07/30/19 15:45> Other Medical History: Reports: Arthritis. Denies: Blood Transfusion Reaction <Shruti Sanchez 07/30/19 15:45> Laterality Cases: Right: Arthroscopy Knee, Bilateral: Arthroscopy Shoulder, Other <Shruti Sanchez 07/30/19 16:22> Other Surgeries: Yes: Other (left AKA, bilateral shoulder sx, right knee sx D/T SEPTIC ARTHRITIS) <Shruti Sanchez 07/30/19 15:45> Amputation: Yes (Left leg) <Shruti Sanchez 07/30/19 15:45> - *Social History Smoking Status: Current every day smoker <BenjaminivanShruti 07/30/19 15:45> Tobacco Type: cigarettes <Shruti Sanchez 07/30/19 15:45> # Packs/Day (cigarettes): 1 <BenjaminivanShruti 07/30/19 15:45> Alcohol Intake: never <DanielShruti 07/30/19 15:45> Alcohol Intake Frequency:: holidays/special occasions only <DanielShruti 07/30/19 15:45> Substance Use Type: IV drugs <BenjaminivanShruti 07/30/19 15:45> *Occupational Status:: disabled <BenjaminivanShruti 07/30/19 15:45> Housing: house <Shruti Sanchez 07/30/19 15:45> *Travel in the last 8 weeks: None <BenjaminivanShruti 07/30/19 15:45> Family Hx:: No significant family history <BenjaminivanShruti 07/30/19 15:45> Review of Systems - Constitutional Reports weakness, Denies chills, Denies fever(s) <BenjaminivanShruti 07/30/19 16:22> - Eyes Denies blurry vision, Denies double vision <BenjaminivanShruti 07/30/19 16:22> - ENT Denies nasal congestion, Denies sore throat <DanielShruti 07/30/19 16:22> - *Cardiovascular Denies chest pain, Denies shortness of breath <BenjaminivanShruti 07/30/19 16:22> - *Respiratory Denies cough, Denies shortness of breath <DanielShruti 07/30/19 16:22> - *Gastrointestinal Reports abdominal pain (mild in the LMQ and RMQ), Reports nausea, Reports vomiting, Denies constipation, Denies loose stools <DainelShruti 07/30/19 16:22> - *Genitourinary Reports urinary frequency, Denies difficulty urinating, Denies painful urination <DanielShruti 07/30/19 16:22> - *Musculoskeletal Reports muscle cramps, Reports body aches <Shruti Sanchez - 07/30/19 16:22> - *Neurologic Reports weakness, Denies headache(s), Denies dizziness <Shruti Sanchez - 07/30/19 16:22> - Endocrine Reports increased thirst, Reports increased urination, Denies rapid, pounding, or irregular heartbeat <Shruti Sanchez - 07/30/19 16:22> Meds Home Medications Medication Instructions Recorded Confirmed Type Glucagon,Human Recombinant 1 mg IJ NEEDED PRN #1 kit 05/10/19 07/30/19 Rx [Glucagon Emergency Kit] Insulin Glargine,Hum.rec.anlog 56 unit SQ DAILY 07/30/19 07/30/19 History [Insulin Glargine 100 Units/mL 3mL flexpen] Insulin NPH Human Isophane 28 unit SQ BID 07/30/19 07/30/19 History [Novolin N Flexpen] Insulin Regular, Human [Humulin R] 0 unit IJ AC 07/30/19 07/30/19 History <Keon Clark - 07/30/19 17:02> Allergies Allergy/AdvReac Type Severity Reaction Status Date / Time No Known Allergies Allergy Verified 01/18/19 20:51 <Keon Clark - 07/30/19 17:02> Exam Vital signs and Labs for Last 24 Hours: Temp Pulse Resp BP Pulse Ox 98.0 F 100 H 19 130/81 97 07/30/19 16:08 07/30/19 16:46 07/30/19 16:08 07/30/19 16:08 07/30/19 16:08 Laboratory Results - last 24 hr 07/30/19 13:30: Urine Color Yellow, Urine Appearance Clear, Urine pH 5.5, Ur Specific [place] 1.025, Urine Protein Negative, Urine Glucose (UA) 3+, Urine Ketones 3+, Urine Blood 1+, Urine Nitrate Negative, Urine Bilirubin Negative, Urine Urobilinogen 0.2, Ur Leukocyte Esterase Negative, Urine RBC 3-5, Urine WBC 3-5, Ur Squamous Epith Cells Occasional, Urine Bacteria Trace 07/30/19 13:30: WBC 12.9 H, RBC 5.45, Hgb 16.0, Hct 50.7, MCV 93.1, MCH 29.5, MCHC 31.6 L, RDW 12.7, Plt Count 369, MPV 8.9, Neut % (Auto) 84.7 H, Lymph % (Auto) 12.4, [place] % (Auto) 2.0, Eos % (Auto) 0.3, Baso % (Auto) 0.5, Neut # (Auto) 11.0 H, Lymph # (Auto) 1.6, [place] # (Auto) 0.3, Eos # (Auto) 0.0, Baso # (Auto) 0.1 07/30/19 13:30: Sodium 132 L, Potassium 4.8, Chloride 93 L, Carbon Dioxide 14 L, Anion Gap 29.8 H, BUN 33 H, Creatinine 0.90, Estimated Creat Clear 122, Estimated GFR 93, Est GFR ( Amer) 113, Glucose 578 H*, Calcium 9.4, Total Bilirubin 0.7, AST 64 H, ALT 69, Alkaline Phosphatase 152 H, Total Protein 8.3 H , Albumin 4.6, Globulin 3.7 H, Albumin/Globulin Ratio 1.2, Acetone Level Small 07/30/19 13:30: Urine Opiates Screen Negative, Urine Methadone Screen Negative, Ur Barbituates Screen Negative, Ur Phencyclidine Scrn Negative, Ur Amphetamines Screen Negative, U Benzodiazepines Scrn Negative, Urine Cocaine Screen Negative, U Marijuana (THC) Screen Negative 07/30/19 13:30: Troponin I < 0.01 07/30/19 13:35: VBG pH 7.26 L, VBG pCO2 28.4 L, VBG pO2 132.0 H, VBG HCO3 12.5 L , VBG Total CO2 13.4 L, VBG O2 Saturation 98.3 H, VBG Base Excess -14.5 L <Keon Clark - 07/30/19 17:02> Temp Pulse Resp BP Pulse Ox 98.2 F 100 H 20 122/85 100 07/30/19 15:36 07/30/19 15:36 07/30/19 15:36 07/30/19 15:36 07/30/19 14:48 Laboratory Results - last 24 hr 07/30/19 13:30: Urine Color Yellow, Urine Appearance Clear, Urine pH 5.5, Ur Specific [place] 1.025, Urine Protein Negative, Urine Glucose (UA) 3+, Urine Ketones 3+, Urine Blood 1+, Urine Nitrate Negative, Urine Bilirubin Negative, Urine Urobilinogen 0.2, Ur Leukocyte Esterase Negative, Urine RBC 3-5, Urine WBC 3-5, Ur Squamous Epith Cells Occasional, Urine Bacteria Trace 07/30/19 13:30: WBC 12.9 H, RBC 5.45, Hgb 16.0, Hct 50.7, MCV 93.1, MCH 29.5, MCHC 31.6 L, RDW 12.7, Plt Count 369, MPV 8.9, Neut % (Auto) 84.7 H, Lymph % (Auto) 12.4, [place] % (Auto) 2.0, Eos % (Auto) 0.3, Baso % (Auto) 0.5, Neut # (Auto) 11.0 H, Lymph # (Auto) 1.6, [place] # (Auto) 0.3, Eos # (Auto) 0.0, Baso # (Auto) 0.1 07/30/19 13:30: Sodium 132 L, Potassium 4.8, Chloride 93 L, Carbon Dioxide 14 L, Anion Gap 29.8 H, BUN 33 H, Creatinine 0.90, Estimated Creat Clear 122, Estimated GFR 93, Est GFR ( Amer) 113, Glucose 578 H*, Calcium 9.4, Total Bilirubin 0.7, AST 64 H, ALT 69, Alkaline Phosphatase 152 H, Total Protein 8.3 H , Albumin 4.6, Globulin 3.7 H, Albumin/Globulin Ratio 1.2, Acetone Level Small 07/30/19 13:30: Urine Opiates Screen Negative, Urine Methadone Screen Negative, Ur Barbituates Screen Negative, Ur Phencyclidine Scrn Negative, Ur Amphetamines Screen Negative, U Benzodiazepines Scrn Negative, Urine Cocaine Screen Negative, U Marijuana (THC) Screen Negative 07/30/19 13:30: Troponin I < 0.01 07/30/19 13:35: VBG pH 7.26 L, VBG pCO2 28.4 L, VBG pO2 132.0 H, VBG HCO3 12.5 L , VBG Total CO2 13.4 L, VBG O2 Saturation 98.3 H, VBG Base Excess -14.5 L <Shruti Sanchez - 07/30/19 15:45> I & O for Last 24 hours: Intake & Output 07/27/19 07/28/19 07/29/19 07/30/19 23:59 23:59 23:59 23:59 Intake Total 2239 Balance 2239 Weight 167 lb 7 oz <Keon Clark - 07/30/19 17:02> Intake & Output 07/28/19 07/29/19 07/30/19 07/31/19 11:59 11:59 11:59 11:59 Intake Total 1999 Balance 1999 Weight 175 lb <Shruti Sanchez - 07/30/19 15:45> - Constitutional no acute distress <Shruti Sanchez - 07/30/19 16:22> - *Routine HEENT Exam Head: Present: normocephalic <Shruti Sanchez 07/30/19 16:22> Eye: Present: EOMI, PERRL <Shruti Sanchez 07/30/19 16:22> ENT: Present: mucous membranes dry <Shruti Sanchez 07/30/19 16:22> - *Routine Neck Exam Present: supple. Absent: lymphadenopathy <Shruti Sanchez - 07/30/19 16:22> - *Routine Respiratory Exam Present: CTA bilaterally <Shruti Sanchez 07/30/19 16:22> - *Routine Cardiovascular Exam Present: RRR <Shruti Sanchez 07/30/19 16:22> - *Routine Abdominal Exam Present: soft, normoactive bowel sounds, tenderness (slight ttp in the RMQ and LMQ) <Shruti Sanchez 07/30/19 16:22> - *Routine Extremities Exam Absent: cyanosis, clubbing, edema <Shruti Sanchez - 07/30/19 16:22> - *Routine Skin Exam Present: warm. Absent: rash <Shruti Sanchez - 07/30/19 16:22> - *Routine Neurological Exam Present: alert, oriented X3 <Shruti Sanchez 07/30/19 16:22> Assessment and Plan (1) Diabetic ketoacidosis Current visit: Yes Status: Acute Qualifiers: Diabetes mellitus type: type 1 Diabetes mellitus complication detail: without coma Qualified Code(s): E10.10 - Type 1 diabetes mellitus with ketoacidosis without coma Category: Medical Code(s): E11.10 - Type 2 diabetes mellitus with ketoacidosis without coma (2) Leukocytosis Current visit: Yes Status: Acute Category: Medical Code(s): D72.829 - Elevated white blood cell count, unspecified (3) Renal insufficiency Current visit: Yes Status: Acute Category: Medical Code(s): N28.9 - Disorder of kidney and ureter, unspecified (4) Hyponatremia Current visit: Yes Status: Acute Category: Medical Code(s): E87.1 - Hypo- osmolality and hyponatremia (5) Elevated liver function tests Current visit: Yes Status: Acute Category: Medical Code(s): R94.5 - Abnormal results of liver function studies (6) History of drug abuse Current visit: No Status: Chronic Category: Medical Code(s): F19.11 - Other psychoactive substance abuse, in remission (7) IDDM (insulin dependent diabetes mellitus) Current visit: No Status: Chronic Category: Medical Code(s): E11.9 - Type 2 diabetes mellitus without complications; Z79.4 - penitentiary (current) use of insulin (8) S/P AKA (above knee amputation) Current visit: No Status: Chronic Category: Surgical Code(s): Z89.619 - Acquired absence of unspecified leg above knee (9) N&V (nausea and vomiting) Current visit: Yes Status: Acute Category: Medical Code(s): R11.2 - Nausea with vomiting, unspecified <AmberKeon - 07/30/19 17:02> (1) Diabetic ketoacidosis Current visit: Yes Status: Acute Qualifiers: Diabetes mellitus type: type 1 Diabetes mellitus complication detail: without coma Qualified Code(s): E10.10 - Type 1 diabetes mellitus with ketoacidosis without coma Category: Medical Code(s): E11.10 - Type 2 diabetes mellitus with ketoacidosis without coma (2) Leukocytosis Current visit: Yes Status: Acute Category: Medical Code(s): D72.829 - Elevated white blood cell count, unspecified (3) Renal insufficiency Current visit: Yes Status: Acute Category: Medical Code(s): N28.9 - Disorder of kidney and ureter, unspecified (4) Hyponatremia Current visit: Yes Status: Acute Category: Medical Code(s): E87.1 - Hypo- osmolality and hyponatremia (5) Elevated liver function tests Current visit: Yes Status: Acute Category: Medical Code(s): R94.5 - Abnormal results of liver function studies (6) History of drug abuse Current visit: No Status: Chronic Category: Medical Code(s): F19.11 - Other psychoactive substance abuse, in remission (7) IDDM (insulin dependent diabetes mellitus) Current visit: No Status: Chronic Category: Medical Code(s): E11.9 - Type 2 diabetes mellitus without complications; Z79.4 - ad terminal makeup operator (current) use of insulin (8) S/P AKA (above knee amputation) Current visit: No Status: Chronic Category: Surgical Code(s): Z89.619 - Acquired absence of unspecified leg above knee <Shruti Sanchez - 07/30/19 16:17> - Assessment and plan all Dx Assessment and Plan for all problems:: Saw patient, agree with above note. Recheck labs tomorrow morning. <Keon Clark - 07/30/19 17:02> Patient has been started on an insulin drip along with IV fluids and antiemetics. Will discuss further care with Dr. Clark. <Shruti Sanchez - 07/30/19 16:22>
--- NOTE | 2019-07-30 16:33 | Pharmacy Consult Notes ---
[facility] Pharmacy VTE Monitoring - Patient Demographics Admission date: 07/30/19 Report Date: 07/30/19 Time: 16:33 Allergies/Adverse Reactions: Patient Allergies No Known Allergies Allergy (Verified 01/18/19 20:51) Height: 1.85 m Weight: 75.948 kg Patient Problems: Current Active Problems Diabetic ketoacidosis (Acute) Leukocytosis (Acute) Renal insufficiency (Acute) Hyponatremia (Acute) Elevated liver function tests (Acute) - VTE Risk Labs: VTE Related Lab Results Hgb 16.0 g/dL (14.1-18.0) 07/30/19 13:30 Hct 50.7 % (42.0-52.0) 07/30/19 13:30 Plt Count 369 K/mm3 (142-424) 07/30/19 13:30 BUN 33 mg/dl (9-20) H 07/30/19 13:30 Creatinine 0.90 mg/dl (0.66-1.25) 07/30/19 13:30 Estimated Creat Clear 122 mL/min (50-200) 07/30/19 13:30 Was VTE Risk Assessment Performed: Yes VTE Score: 0 VTE Risk Level: Very Low Risk Clinical Trial Participant: No - Prophylaxis VTE Prophylaxis Ordered?: Yes Types of VTE Prophylaxis: TEDS Knee High
[2019-07-30 16:53] LABS: Anion Gap 19.2 mEq/L (5-15); Calcium 8.5 mg/dl (8.4-10.2)
[2019-07-30 23:36] LABS: Anion Gap 8.8 mEq/L (5-15); Calcium 8.2 mg/dl (8.4-10.2)
[2019-07-31 04:32] LABS: Anion Gap 7.7 mEq/L (5-15)
--- NOTE | 2019-07-31 08:17 | Progress Note ---
<Shruti Sanchez - Last Filed: 07/31/19 08:14> Internal Medicine - PN: Subj *Date: 07/31/19 *Time: 08:14 Interval history: Patient states he is feeling better this morning. His leg cramps and abdominal pain have improved. He has had no further vomiting. He ate all of his breakfast this morning and is requesting more. He is off the insulin drip and his glucose has improved. Exam Vital signs and Labs for Last 24 Hours: Temp Pulse Resp BP Pulse Ox 98.0 F 72 16 122/73 97 07/31/19 00:14 07/31/19 04:00 07/31/19 04:00 07/31/19 04:00 07/31/19 04:00 Laboratory Results - last 24 hr 07/30/19 13:27: POC Glucose 588 H* 07/30/19 13:30: Urine Color Yellow, Urine Appearance Clear, Urine pH 5.5, Ur Specific [place] 1.025, Urine Protein Negative, Urine Glucose (UA) 3+, Urine Ketones 3+, Urine Blood 1+, Urine Nitrate Negative, Urine Bilirubin Negative, Urine Urobilinogen 0.2, Ur Leukocyte Esterase Negative, Urine RBC 3-5, Urine WBC 3-5, Ur Squamous Epith Cells Occasional, Urine Bacteria Trace 07/30/19 13:30: WBC 12.9 H, RBC 5.45, Hgb 16.0, Hct 50.7, MCV 93.1, MCH 29.5, MCHC 31.6 L, RDW 12.7, Plt Count 369, MPV 8.9, Neut % (Auto) 84.7 H, Lymph % (Auto) 12.4, [place] % (Auto) 2.0, Eos % (Auto) 0.3, Baso % (Auto) 0.5, Neut # (Auto) 11.0 H, Lymph # (Auto) 1.6, [place] # (Auto) 0.3, Eos # (Auto) 0.0, Baso # (Auto) 0.1 07/30/19 13:30: Sodium 132 L, Potassium 4.8, Chloride 93 L, Carbon Dioxide 14 L, Anion Gap 29.8 H, BUN 33 H, Creatinine 0.90, Estimated Creat Clear 122, Estimated GFR 93, Est GFR ( Amer) 113, Glucose 578 H*, Calcium 9.4, Total Bilirubin 0.7, AST 64 H, ALT 69, Alkaline Phosphatase 152 H, Total Protein 8.3 H , Albumin 4.6, Globulin 3.7 H, Albumin/Globulin Ratio 1.2, Acetone Level Small 07/30/19 13:30: Urine Opiates Screen Negative, Urine Methadone Screen Negative, Ur Barbituates Screen Negative, Ur Phencyclidine Scrn Negative, Ur Amphetamines Screen Negative, U Benzodiazepines Scrn Negative, Urine Cocaine Screen Negative, U Marijuana (THC) Screen Negative 07/30/19 13:30: Troponin I < 0.01 07/30/19 13:35: VBG pH 7.26 L, VBG pCO2 28.4 L, VBG pO2 132.0 H, VBG HCO3 12.5 L , VBG Total CO2 13.4 L, VBG O2 Saturation 98.3 H, VBG Base Excess -14.5 L 07/30/19 16:11: POC Glucose 301 H* 07/30/19 16:31: Sodium 133 L, Potassium 4.2, Chloride 96 L, Carbon Dioxide 22 D , Anion Gap 19.2 H, BUN 30 H, Creatinine 0.80, Estimated Creat Clear 132, Estimated GFR 107, Est GFR ( Amer) 130, Glucose 297 H D, Calcium 8.5 07/30/19 16:31: Lactate 1.4 07/30/19 17:45: POC Glucose 264 H 07/30/19 19:45: POC Glucose 263 H 07/30/19 21:54: POC Glucose 158 H 07/30/19 23:21: Sodium 134 L, Potassium 3.8, Chloride 101, Carbon Dioxide 28 D, Anion Gap 8.8, BUN 24 H, Creatinine 0.50 L D, Estimated Creat Clear 211, Estimated GFR 184, Est GFR ( Amer) 223 D, Glucose 142 H D, Calcium 8.2 L 07/30/19 23:50: POC Glucose 160 H 07/31/19 02:01: POC Glucose 124 H 07/31/19 03:10: POC Glucose 174 H 07/31/19 04:05: Acetone Level None detected 07/31/19 04:05: Sodium 133 L, Potassium 3.7, Chloride 103, Carbon Dioxide 26, Anion Gap 7.7, BUN 18, Creatinine 0.50 L, Estimated Creat Clear 211, Estimated GFR 184, Est GFR ( Amer) 223, Glucose 181 H D, Calcium 8.0 L 07/31/19 04:05: POC Glucose 189 H 07/31/19 06:31: POC Glucose 199 H I & O for Last 24 hours: Intake & Output 07/28/19 07/29/19 07/30/19 07/31/19 11:59 11:59 11:59 11:59 Intake Total 2480 / 2480 Output Total 225 / 225 Balance 2255 / 2255 Weight 162 lb 9 oz - Constitutional no acute distress - *Routine Respiratory Exam Present: CTA bilaterally - *Routine Cardiovascular Exam Present: RRR - *Routine Abdominal Exam Present: soft, normoactive bowel sounds. Absent: tenderness - *Routine Extremities Exam Absent: cyanosis, clubbing, edema Comments: Left BKA - *Routine Skin Exam Present: warm. Absent: rash - *Routine Neurological Exam Present: alert, oriented X3 Assessment and Plan (1) Diabetic ketoacidosis Current visit: Yes Status: Acute Qualifiers: Diabetes mellitus type: type 1 Diabetes mellitus complication detail: without coma Qualified Code(s): E10.10 - Type 1 diabetes mellitus with ketoacidosis without coma Category: Medical Code(s): E11.10 - Type 2 diabetes mellitus with ketoacidosis without coma (2) Leukocytosis Current visit: Yes Status: Acute Category: Medical Code(s): D72.829 - Elevated white blood cell count, unspecified (3) Renal insufficiency Current visit: Yes Status: Acute Category: Medical Code(s): N28.9 - Disorder of kidney and ureter, unspecified (4) Hyponatremia Current visit: Yes Status: Acute Category: Medical Code(s): E87.1 - Hypo- osmolality and hyponatremia (5) Elevated liver function tests Current visit: Yes Status: Acute Category: Medical Code(s): R94.5 - Abnormal results of liver function studies (6) History of drug abuse Current visit: No Status: Chronic Category: Medical Code(s): F19.11 - Other psychoactive substance abuse, in remission (7) IDDM (insulin dependent diabetes mellitus) Current visit: No Status: Chronic Category: Medical Code(s): E11.9 - Type 2 diabetes mellitus without complications; Z79.4 - intermediate card tender (current) use of insulin (8) S/P AKA (above knee amputation) Current visit: No Status: Chronic Category: Surgical Code(s): Z89.619 - Acquired absence of unspecified leg above knee (9) N&V (nausea and vomiting) Current visit: Yes Status: Acute Category: Medical Code(s): R11.2 - Nausea with vomiting, unspecified - Assessment and plan all Dx Assessment and Plan for all problems:: Pt improving. Will continue current care. <Keon Clark - Last Filed: 07/31/19 08:51> Internal Medicine - PN: Subj *Date: 07/31/19 *Time: 08:50 Exam Vital signs and Labs for Last 24 Hours: Temp Pulse Resp BP Pulse Ox 98.2 F 78 14 121/69 95 07/31/19 04:00 07/31/19 08:00 07/31/19 08:00 07/31/19 08:00 07/31/19 08:00 Laboratory Results - last 24 hr 07/30/19 13:27: POC Glucose 588 H* 07/30/19 13:30: Urine Color Yellow, Urine Appearance Clear, Urine pH 5.5, Ur Specific [place] 1.025, Urine Protein Negative, Urine Glucose (UA) 3+, Urine Ketones 3+, Urine Blood 1+, Urine Nitrate Negative, Urine Bilirubin Negative, Urine Urobilinogen 0.2, Ur Leukocyte Esterase Negative, Urine RBC 3-5, Urine WBC 3-5, Ur Squamous Epith Cells Occasional, Urine Bacteria Trace 07/30/19 13:30: WBC 12.9 H, RBC 5.45, Hgb 16.0, Hct 50.7, MCV 93.1, MCH 29.5, MCHC 31.6 L, RDW 12.7, Plt Count 369, MPV 8.9, Neut % (Auto) 84.7 H, Lymph % (Auto) 12.4, [place] % (Auto) 2.0, Eos % (Auto) 0.3, Baso % (Auto) 0.5, Neut # (Auto) 11.0 H, Lymph # (Auto) 1.6, [place] # (Auto) 0.3, Eos # (Auto) 0.0, Baso # (Auto) 0.1 07/30/19 13:30: Sodium 132 L, Potassium 4.8, Chloride 93 L, Carbon Dioxide 14 L, Anion Gap 29.8 H, BUN 33 H, Creatinine 0.90, Estimated Creat Clear 122, Estimated GFR 93, Est GFR ( Amer) 113, Glucose 578 H*, Calcium 9.4, Total Bilirubin 0.7, AST 64 H, ALT 69, Alkaline Phosphatase 152 H, Total Protein 8.3 H , Albumin 4.6, Globulin 3.7 H, Albumin/Globulin Ratio 1.2, Acetone Level Small 07/30/19 13:30: Urine Opiates Screen Negative, Urine Methadone Screen Negative, Ur Barbituates Screen Negative, Ur Phencyclidine Scrn Negative, Ur Amphetamines Screen Negative, U Benzodiazepines Scrn Negative, Urine Cocaine Screen Negative, U Marijuana (THC) Screen Negative 07/30/19 13:30: Troponin I < 0.01 07/30/19 13:35: VBG pH 7.26 L, VBG pCO2 28.4 L, VBG pO2 132.0 H, VBG HCO3 12.5 L , VBG Total CO2 13.4 L, VBG O2 Saturation 98.3 H, VBG Base Excess -14.5 L 07/30/19 16:11: POC Glucose 301 H* 07/30/19 16:31: Sodium 133 L, Potassium 4.2, Chloride 96 L, Carbon Dioxide 22 D , Anion Gap 19.2 H, BUN 30 H, Creatinine 0.80, Estimated Creat Clear 132, Estimated GFR 107, Est GFR ( Amer) 130, Glucose 297 H D, Calcium 8.5 07/30/19 16:31: Lactate 1.4 07/30/19 17:45: POC Glucose 264 H 07/30/19 19:45: POC Glucose 263 H 07/30/19 21:54: POC Glucose 158 H 07/30/19 23:21: Sodium 134 L, Potassium 3.8, Chloride 101, Carbon Dioxide 28 D, Anion Gap 8.8, BUN 24 H, Creatinine 0.50 L D, Estimated Creat Clear 211, Estimated GFR 184, Est GFR ( Amer) 223 D, Glucose 142 H D, Calcium 8.2 L 07/30/19 23:50: POC Glucose 160 H 07/31/19 02:01: POC Glucose 124 H 07/31/19 03:10: POC Glucose 174 H 07/31/19 04:05: Acetone Level None detected 07/31/19 04:05: Sodium 133 L, Potassium 3.7, Chloride 103, Carbon Dioxide 26, Anion Gap 7.7, BUN 18, Creatinine 0.50 L, Estimated Creat Clear 211, Estimated GFR 184, Est GFR ( Amer) 223, Glucose 181 H D, Calcium 8.0 L 07/31/19 04:05: POC Glucose 189 H 07/31/19 06:31: POC Glucose 199 H I & O for Last 24 hours: Intake & Output 07/28/19 07/29/19 07/30/19 07/31/19 23:59 23:59 23:59 23:59 Intake Total 2240 / 2480 240 / 240 Output Total 225 / 225 Balance 2240 / 2480 Weight 167 lb 7 oz 162 lb 9 oz Assessment and Plan (1) Diabetic ketoacidosis Current visit: Yes Status: Acute Qualifiers: Diabetes mellitus type: type 1 Diabetes mellitus complication detail: without coma Qualified Code(s): E10.10 - Type 1 diabetes mellitus with ketoacidosis without coma Category: Medical Code(s): E11.10 - Type 2 diabetes mellitus with ketoacidosis without coma (2) Leukocytosis Current visit: Yes Status: Acute Category: Medical Code(s): D72.829 - Elevated white blood cell count, unspecified (3) Renal insufficiency Current visit: Yes Status: Acute Category: Medical Code(s): N28.9 - Disorder of kidney and ureter, unspecified (4) Hyponatremia Current visit: Yes Status: Acute Category: Medical Code(s): E87.1 - Hypo- osmolality and hyponatremia (5) Elevated liver function tests Current visit: Yes Status: Acute Category: Medical Code(s): R94.5 - Abnormal results of liver function studies (6) History of drug abuse Current visit: No Status: Chronic Category: Medical Code(s): F19.11 - Other psychoactive substance abuse, in remission (7) IDDM (insulin dependent diabetes mellitus) Current visit: No Status: Chronic Category: Medical Code(s): E11.9 - Type 2 diabetes mellitus without complications; Z79.4 - intermediate card tender (current) use of insulin (8) S/P AKA (above knee amputation) Current visit: No Status: Chronic Category: Surgical Code(s): Z89.619 - Acquired absence of unspecified leg above knee (9) N&V (nausea and vomiting) Current visit: Yes Status: Acute Category: Medical Code(s): R11.2 - Nausea with vomiting, unspecified - Assessment and plan all Dx Assessment and Plan for all problems:: Saw patient, agree with above note.
--- NOTE | 2019-08-01 16:06 | Electrocardiograph Report ---
APPROVED REPORT Exam: Resting ECG HR:99 bpm ECG Measurements Heart Rate 99 AXES MO 160 P 76 QRSd 100 QRS 45 QT 368 T70 QTc 472 <Conclusion> Normal sinus rhythm Right atrial enlargement Borderline ECG Electronically signed by : Cl Jennings, 08/01/2019 16:05:57
--- NOTE | 2019-08-04 08:53 | Discharge Summary ---
General - General Admission date:: 07/30/19 Discharge date: 08/31/19 HPI HPI: Mr. Pat is a Type 1 diabetic who was brought into the ER by ambulance with a 2-day history of vomiting, nausea, and high blood sugar. He has vomited approximately 6-8 times and his sugar was 437 yesterday. He is currently using NPH insulin and taking 28 units twice a day along with a regular sliding scale insulin with each meal. He was supposed to be on Lantus but could not afford it. The only other medication he has been taking is suboxone but he has not had this in four days either. He denies any pain other than in his legs. He states they ache. He denies any diarrhea or fever. He was evaluated in the emergency room and his white blood cell count was found to be elevated at 12.9. His glucose was 578, and his pH was 7.26. His acetone level was small. A lactic acid is pending. The patient was admitted for DKA and placed on insulin drip as well as IV fluids. Hospital Course Hospital Course: The patient was admitted and started on an insulin drip along with IV fluids and antiemetics. His glucose improved and he was weaned off of the drip. His leg cramps and abdominal pain improved and he had no further vomiting. He was able to eat without problems. His repeat acetone level showed none detected. He was stable to be discharged home. Objective Vital signs: Temp Pulse Resp BP Pulse Ox 98.4 F 93 H 15 120/68 99 07/31/19 11:00 07/31/19 11:00 07/31/19 11:00 07/31/19 11:07/31/19 11:00 Narrative: - Constitutional no acute distress - *Routine HEENT Exam Head: Present: normocephalic Eye: Present: EOMI, PERRL ENT: Present: mucous membranes dry - *Routine Neck Exam Present: supple. Absent: lymphadenopathy - *Routine Respiratory Exam Present: CTA bilaterally - *Routine Cardiovascular Exam Present: RRR - *Routine Abdominal Exam Present: soft, normoactive bowel sounds, tenderness (slight ttp in the RMQ and LMQ) - *Routine Extremities Exam Absent: cyanosis, clubbing, edema - *Routine Skin Exam Present: warm. Absent: rash - *Routine Neurological Exam Present: alert, oriented X3 DS: Diagnosis - Discharge Diagnosis (1) Diabetic ketoacidosis Status: Acute (2) Leukocytosis Status: Acute (3) Renal insufficiency Status: Acute (4) Hyponatremia Status: Acute (5) Elevated liver function tests Status: Acute (6) History of drug abuse Status: Chronic (7) IDDM (insulin dependent diabetes mellitus) Status: Chronic (8) S/P AKA (above knee amputation) Status: Chronic (9) N&V (nausea and vomiting) Status: Acute Discharge Plan - Patient Discharge Instructions ACTIVITY: Continue current activity DIET: continue same diet Patient Instructions: DI for Diabetic Ketoacidosis - Follow up Plan Follow up with: Lyla Mireles [Primary Care Provider] - (Call office Friday for follow up appointment.) Unknown provider or service follow up:: Follow up with primary MD in 1 week. Disposition: Home, Self-Fdc Medications: Home Medications Medication Instructions Recorded Confirmed Type Glucagon,Human Recombinant 1 mg IJ NEEDED PRN #1 kit 05/10/19 07/30/19 Rx [Glucagon Emergency Kit] Insulin Regular, Human [Humulin R] 0 unit IJ AC 07/30/19 07/30/19 History Insulin Glargine,Hum.rec.anlog 30 unit SQ DAILY #5 insuln.pen 07/31/19 Rx [Lantus Solostar 100 Units/mL 3mL flexpen] Pen Needle, Diabetic [Pen [place]] 1 each MC DAILY #100 dis.needle 07/31/19 Rx Syringe and Needle,Insulin,1Ml 1 each MC TID #100 disp.syrin 07/31/19 Rx [Insulin Syringe] Prescriptions/Medication Reconciliation: New Insulin Glargine,Hum.rec.anlog [Lantus Solostar 100 Units/mL 3mL flexpen] 30 unit SQ DAILY #5 insuln.pen Syringe and Needle,Insulin,1Ml [Insulin Syringe] 1 each MC TID #100 disp.syrin Pen Needle, Diabetic [Pen [place]] 1 each MC DAILY #100 dis.needle Continued Insulin Regular, Human [Humulin R] 0 unit IJ AC Glucagon,Human Recombinant [Glucagon Emergency Kit] 1 mg IJ NEEDED PRN #1 kit PRN Reason: Hypoglycemia Discontinued Insulin NPH Human Isophane [Novolin N Flexpen] 28 unit SQ BID - Problem Reconciliation Problems Reviewed?: Yes
== END 2019-07-31 13:49 | disposition home or self-care (01) | DRG 638 ==
LOC: ER 13:17 → 2ND 15:14
PROVIDERS: ADMIT Family Medicine; ATTEND Family Medicine
CPT/HCPCS: J2405